=== PATIENT | male | born 1940 | race Caucasian/White ===

== ENCOUNTER 2019-06-28 13:32 | Inpatient (IN) | payer MEDICARE, OTHER, MEDICAID ==
[2019-06-28 14:09] LABS: ADD MAN DIFF? NO
[2019-06-28 14:14] LABS: BASOPHILS % 0.3 % (0.0-2.0); EOSINOPHILS # 0.1 10^3/ul (0.0-0.5); EOSINOPHILS % 0.9 % (0.0-7.0); HEMATOCRIT 29.5 % (42.0-52.0); LYMPHOCYTES % 9.7 % (15.0-51.0); MEAN CORPUSCULAR HEMOGLOBIN 29.4 pg (29.0-33.0); MEAN CORPUSCULAR HGB CONC 30.5 g/dl (32.0-37.0); MEAN CORPUSCULAR VOLUME 96.4 fl (82.0-101.0); MEAN PLATELET VOLUME 9.9 fl (7.4-10.4); MONOCYTE # 0.7 10^3/ul (0.3-0.9); MONOCYTES % 7.1 % (0.0-11.0); NEUTROPHIL # 8.5 10^3/ul (1.6-7.5); NEUTROPHILS % 81.4 % (39.0-77.0); PLATELET COUNT 267 10^3/UL (140-415); RED BLOOD COUNT 3.06 10^6/ul (4.70-6.10); RED CELL DISTRIBUTION WIDTH 14.1 % (11.5-14.5)
[2019-06-28 14:14] LABS: WHITE BLOOD COUNT 10.4 10^3/ul (4.8-10.8)
[2019-06-28] MEDS: ONDANSETRON 4 MG INJ IV ×2 (14:14→19:40)
[2019-06-28] MEDS: SOD CHLORIDE 0.9% 1,000 ML IV (14:14)
[2019-06-28] MEDS: FENTAnyl 50 MCG/ML VIAL IV (14:15)
[2019-06-28 14:21] LABS: ADD UMIC YES; UR ASCORBIC ACID NEGATIVE (NEGATIVE); UR BACTERIA FEW /HPF (NONE SEEN); UR BILIRUBIN (Dip) NEGATIVE (NEGATIVE); UR BLOOD (Dip) 1+ mg/dL (NEGATIVE); UR CLARITY SLIGHTLY CLOUDY (CLEAR); UR COLOR YELLOW (YELLOW); UR GLUCOSE (Dip) 3+ mg/dL (NEGATIVE); UR KETONES (Dip) NEGATIVE (NEGATIVE); UR LEUKOCYTE ESTERASE (Dip) TRACE Leu/ul (NEGATIVE); UR MUCUS FEW /HPF (NONE SEEN); UR NITRITE (Dip) NEGATIVE (NEGATIVE); UR RBC 2 /HPF (0-5); UR SPECIFIC GRAVITY (Dip) 1.008 (1.003-1.030); UR TOTAL PROTEIN (Dip) 1+ mg/dl (NEGATIVE); UR UROBILINOGEN (Dip) NEGATIVE (NEGATIVE); UR WBC 3 /HPF (0-5)
[2019-06-28 14:33] LABS: INR 1.29; PROTIME 16.2 Sec (11.9-14.9); PT RATIO 1.3
[2019-06-28 14:35] LABS: ALANINE AMINOTRANSFERASE 41 IU/L (13-69); ALBUMIN 2.8 g/dl (3.3-4.9); ALBUMIN/GLOBULIN RATIO 0.75; ALKALINE PHOSPHATASE 257 IU/L (42-121); ANION GAP 7 (5-13); ASPARTATE AMINO TRANSFERASE 34 IU/L (15-46); BILIRUBIN,INDIRECT 0.8 mg/dl (0-1.1); BILIRUBIN,TOTAL 0.8 mg/dl (0.2-1.3); BLOOD UREA NITROGEN 54 mg/dl (7-20); CALCIUM 8.5 mg/dl (8.4-10.2); CARBON DIOXIDE 25 mmol/L (21-31); CHLORIDE 106 mmol/L (97-110); CREATININE 1.14 mg/dl (0.61-1.24); GLUCOSE 375 mg/dl (70-220); LIPASE 176 U/L (23-300); POTASSIUM 3.8 mmol/L (3.5-5.1); SODIUM 138 mmol/L (135-144); TOTAL PROTEIN 6.5 g/dl (6.1-8.1)
[2019-06-28 14:47] LABS: TROPONIN-I < 0.012 ng/ml (0.000-0.120)
[2019-06-28] MEDS ORDERED: ONDANSETRON 4 MG INJ IV (19:30)
[2019-06-28] MEDS ORDERED: ACETAMINOPHEN 325 MG TAB PO (19:30)
[2019-06-28] MEDS: morphine 2 MG INJ IV (19:40)
[2019-06-28] MEDS: SOD CHLORIDE 0.9% 500 ML IV (19:40)
[2019-06-29] MEDS: LEVETIRACETAM 500 MG TAB PO ×3 (01:24→20:49)
[2019-06-29] MEDS ORDERED: ONDANSETRON 4 MG INJ IV (01:30)
[2019-06-29] MEDS ORDERED: ALBUTEROL/IPRATROPIUM (NEB) 3 ML AMP HHN (01:30)
[2019-06-29] MEDS ORDERED: NACL 0.9% 3 ML SYG IV (01:30)
[2019-06-29] MEDS: FOLIC ACID 1 MG TAB PO (08:48)
[2019-06-29] MEDS: MUPIROCIN 2% 22 GM OINT TOP ×2 (08:49→20:50)
[2019-06-29] MEDS ORDERED: HEPARIN 5,000 UNIT/1 ML VIAL SC (09:00)
[2019-06-29] MEDS ORDERED: NON-FORMULARY/PATIENT OWN MED (Memantine HCl/Donepezil HCl (Namzaric 28 mg-10 mg Capsule) PO (09:00)
[2019-06-29] MEDS: ACETAMINOPHEN 325 MG TAB PO (12:23)
[2019-06-29] MEDS ORDERED: GLUCOSE GEL 15 GRAM TUBE PO ×2 (12:30)
[2019-06-29] MEDS ORDERED: DEXTROSE 50% 50 ML SYRINGE IV ×2 (12:30)
[2019-06-29] MEDS ORDERED: GLUCAGON 1 MG INJ IM (12:30)
[2019-06-29] MEDS ORDERED: hydrALAzine 20 MG INJ IV (12:30)
[2019-06-29] MEDS ORDERED: GLUCOSE GEL 15 GRAM TUBE BUCCAL (12:30)
[2019-06-29 13:39] LABS: TROPONIN-I < 0.012 ng/ml (0.000-0.120)
[2019-06-29] MEDS: CEPHALEXIN 500 MG CAP PO ×2 (13:59→17:04)
[2019-06-29] MEDS: HYDROCODONE/APAP (5/325) TAB PO (14:51)
[2019-06-29] MEDS: DONEPEZIL 10 MG TAB PO (16:58)
[2019-06-29] MEDS: INSULIN ASPART [NOVOLOG] 3 ML PEN SC ×2 (17:24→21:09)
[2019-06-29 19:18] LABS: TROPONIN-I < 0.012 ng/ml (0.000-0.120)
[2019-06-29] MEDS: ATORVASTATIN 40 MG TAB PO (20:49)
[2019-06-29] MEDS: MEMANTINE 10 MG TAB PO (20:50)
[2019-06-30] MEDS: CEPHALEXIN 500 MG CAP PO ×2 (01:49→05:57)
[2019-06-30] MEDS: ACCU-CHEK XX (01:59)
[2019-06-30 06:14] LABS: ADD MAN DIFF? NO
[2019-06-30 06:26] LABS: BASOPHILS % 0.3 % (0.0-2.0); EOSINOPHILS # 0.2 10^3/ul (0.0-0.5); EOSINOPHILS % 1.3 % (0.0-7.0); HEMATOCRIT 32.4 % (42.0-52.0); HEMOGLOBIN 9.8 g/dl (14.0-18.0); LYMPHOCYTES # 1.4 10^3/ul (0.8-2.9); LYMPHOCYTES % 10.9 % (15.0-51.0); MEAN CORPUSCULAR HEMOGLOBIN 29.4 pg (29.0-33.0); MEAN CORPUSCULAR HGB CONC 30.2 g/dl (32.0-37.0); MEAN CORPUSCULAR VOLUME 97.3 fl (82.0-101.0); MEAN PLATELET VOLUME 10.1 fl (7.4-10.4); MONOCYTE # 0.8 10^3/ul (0.3-0.9); MONOCYTES % 6.3 % (0.0-11.0); NEUTROPHIL # 10.3 10^3/ul (1.6-7.5); NEUTROPHILS % 80.8 % (39.0-77.0); PLATELET COUNT 280 10^3/UL (140-415); RED BLOOD COUNT 3.33 10^6/ul (4.70-6.10); RED CELL DISTRIBUTION WIDTH 14.5 % (11.5-14.5)
[2019-06-30 06:26] LABS: WHITE BLOOD COUNT 12.8 10^3/ul (4.8-10.8)
[2019-06-30 07:00] LABS: ALANINE AMINOTRANSFERASE 33 IU/L (13-69); ALBUMIN 2.8 g/dl (3.3-4.9); ALBUMIN/GLOBULIN RATIO 0.71; ALKALINE PHOSPHATASE 280 IU/L (42-121); ANION GAP 4 (5-13); ASPARTATE AMINO TRANSFERASE 34 IU/L (15-46); BILIRUBIN,INDIRECT 0.8 mg/dl (0-1.1); BILIRUBIN,TOTAL 0.8 mg/dl (0.2-1.3); BLOOD UREA NITROGEN 34 mg/dl (7-20); CALCIUM 8.7 mg/dl (8.4-10.2); CARBON DIOXIDE 26 mmol/L (21-31); CHLORIDE 107 mmol/L (97-110); CREATININE 0.86 mg/dl (0.61-1.24); GLUCOSE 202 mg/dl (70-220); MAGNESIUM 1.8 mg/dl (1.7-2.5); PHOSPHORUS 2.7 mg/dl (2.5-4.9); POTASSIUM 4.1 mmol/L (3.5-5.1); SODIUM 137 mmol/L (135-144); TOTAL PROTEIN 6.7 g/dl (6.1-8.1)
[2019-06-30 07:09] LABS: CHOLESTEROL 98 mg/dl (100-200)
[2019-06-30 07:09] LABS: CHOL/HDL RATIO 3.9 RATIO; HDL CHOLESTEROL 25 mg/dl (31-75); LDL CHOLESTEROL,CALCULATED 53 mg/dl; TRIGLYCERIDES 100 mg/dl (0-149)
[2019-06-30] MEDS: INSULIN ASPART [NOVOLOG] 3 ML PEN SC ×4 (07:59→21:43)
[2019-06-30] MEDS: MEMANTINE 10 MG TAB PO ×2 (08:48→20:41)
[2019-06-30] MEDS: MUPIROCIN 2% 22 GM OINT TOP ×2 (08:49→20:44)
[2019-06-30] MEDS: FOLIC ACID 1 MG TAB PO (08:49)
[2019-06-30] MEDS: DONEPEZIL 10 MG TAB PO (08:49)
[2019-06-30] MEDS: LEVETIRACETAM 500 MG TAB PO ×2 (08:49→20:41)
[2019-06-30] MEDS: CEFEPIME 1GM/50 ML (PMX) 50 ML IVPB ×2 (10:04→20:40)
[2019-06-30] MEDS: HYDROCODONE/APAP (5/325) TAB PO (12:07)
[2019-06-30] MEDS: ATORVASTATIN 40 MG TAB PO (20:41)
[2019-06-30] MEDS: ASCORBIC ACID 500 MG TAB PO (20:43)
[2019-07-01] MEDS: ACCU-CHEK XX ×2 (02:14→21:58)
[2019-07-01 06:23] LABS: WHITE BLOOD COUNT 14.7 10^3/ul (4.8-10.8)
[2019-07-01 06:23] LABS: HEMOGLOBIN 9.5 g/dl (14.0-18.0); MEAN CORPUSCULAR HEMOGLOBIN 29.4 pg (29.0-33.0); MEAN CORPUSCULAR HGB CONC 30.6 g/dl (32.0-37.0); MEAN PLATELET VOLUME 10.2 fl (7.4-10.4); PLATELET COUNT 269 10^3/UL (140-415); POSITIVE DIFF @See below; RED BLOOD COUNT 3.23 10^6/ul (4.70-6.10); RED CELL DISTRIBUTION WIDTH 14.5 % (11.5-14.5)
[2019-07-01 06:50] LABS: ANION GAP 5 (5-13); BLOOD UREA NITROGEN 33 mg/dl (7-20); CALCIUM 8.5 mg/dl (8.4-10.2); CARBON DIOXIDE 26 mmol/L (21-31); CHLORIDE 106 mmol/L (97-110); GLUCOSE 240 mg/dl (70-220); MAGNESIUM 1.8 mg/dl (1.7-2.5); PHOSPHORUS 2.7 mg/dl (2.5-4.9); POTASSIUM 3.7 mmol/L (3.5-5.1); SODIUM 137 mmol/L (135-144)
[2019-07-01 07:03] LABS: ADD MAN DIFF? YES
[2019-07-01] MEDS: MULTIVITAMINS THERAPEUTIC TAB PO (08:11)
[2019-07-01] MEDS: BALSAM PERU/CASTOR OIL 60 GM TUBE TOP (08:11)
[2019-07-01] MEDS: ZINC SULFATE 220 MG CAP PO (08:11)
[2019-07-01] MEDS: LEVETIRACETAM 500 MG TAB PO ×2 (08:11→20:17)
[2019-07-01] MEDS: MEMANTINE 10 MG TAB PO ×2 (08:11→20:17)
[2019-07-01] MEDS: FOLIC ACID 1 MG TAB PO (08:11)
[2019-07-01] MEDS: CEFEPIME 1GM/50 ML (PMX) 50 ML IVPB ×2 (08:12→20:17)
[2019-07-01] MEDS: ASCORBIC ACID 500 MG TAB PO ×2 (08:12→20:17)
[2019-07-01] MEDS: DONEPEZIL 10 MG TAB PO (08:13)
[2019-07-01] MEDS: INSULIN ASPART [NOVOLOG] 3 ML PEN SC ×5 (08:24→21:57)
[2019-07-01 08:44] LABS: BAND NEUTROPHILS #M 0.1 10^3/ul (0.0-0.6); BAND NEUTROPHILS % (M) 1 % (0-4); EOSINOPHILS % (M) 2 % (0-7); GIANT THROMBO% (M) 1 % (0-0); LYMPHOCYTES #M 1.6 10^3/ul (0.8-2.9); LYMPHOCYTES % (M) 11 % (15-51); MONOCYTE #M 0.8 10^3/ul (0.3-0.9); MONOCYTES % (M) 6 % (0-11); PLATELET ESTIMATE NORMAL; POLYCHROMASIA 1+ (0-0); SEG NEUT #M 11.8 10^3/ul (1.6-7.5); SEGMENTED NEUTROPHILS (M) % 80 % (39-77); SMUDGE%M 8 % (0-0)
[2019-07-01] MEDS: MUPIROCIN 2% 22 GM OINT TOP ×2 (12:02→20:18)
[2019-07-01 12:37] LABS: IMMEDIATE SPIN CROSSMATCH 1 2
[2019-07-01] MEDS: MAGNESIUM SULFATE 2 GM/50 ML 50 ML IVPB (17:21)
[2019-07-01 18:48] LABS: HEMATOCRIT 33.5 % (42.0-52.0); HEMOGLOBIN 10.6 g/dl (14.0-18.0)
[2019-07-01] MEDS: COLLAGENASE 5 GM (UD JAR) TOP (20:17)
[2019-07-01] MEDS: ATORVASTATIN 40 MG TAB PO (20:18)
[2019-07-01] MEDS: POTASSIUM CHLORIDE 100 ML IVPB (21:53)
[2019-07-01] MEDS: ACETAMINOPHEN 325 MG TAB PO (23:21)
[2019-07-02] MEDS: ACCU-CHEK XX (03:37)
[2019-07-02 06:04] LABS: ADD MAN DIFF? NO
[2019-07-02 06:08] LABS: WHITE BLOOD COUNT 13.1 10^3/ul (4.8-10.8)
[2019-07-02 06:08] LABS: BASOPHILS % 0.3 % (0.0-2.0); EOSINOPHILS # 0.2 10^3/ul (0.0-0.5); EOSINOPHILS % 1.3 % (0.0-7.0); HEMOGLOBIN 11.3 g/dl (14.0-18.0); LYMPHOCYTES # 1.5 10^3/ul (0.8-2.9); LYMPHOCYTES % 11.7 % (15.0-51.0); MEAN CORPUSCULAR HEMOGLOBIN 29.3 pg (29.0-33.0); MEAN CORPUSCULAR HGB CONC 31.4 g/dl (32.0-37.0); MEAN CORPUSCULAR VOLUME 93.3 fl (82.0-101.0); MONOCYTES % 7.9 % (0.0-11.0); NEUTROPHIL # 10.2 10^3/ul (1.6-7.5); NEUTROPHILS % 77.9 % (39.0-77.0); PLATELET COUNT 256 10^3/UL (140-415); POSITIVE DIFF @See below; RED BLOOD COUNT 3.86 10^6/ul (4.70-6.10); RED CELL DISTRIBUTION WIDTH 15.3 % (11.5-14.5)
[2019-07-02 06:40] LABS: ALBUMIN 2.7 g/dl (3.3-4.9); ANION GAP 7 (5-13); BLOOD UREA NITROGEN 40 mg/dl (7-20); CALCIUM 8.7 mg/dl (8.4-10.2); CARBON DIOXIDE 22 mmol/L (21-31); CHLORIDE 107 mmol/L (97-110); CREATININE 1.09 mg/dl (0.61-1.24); GLUCOSE 317 mg/dl (70-220); MAGNESIUM 2.3 mg/dl (1.7-2.5); PHOSPHORUS 2.7 mg/dl (2.5-4.9); POTASSIUM 4.1 mmol/L (3.5-5.1); SODIUM 136 mmol/L (135-144)
[2019-07-02 06:53] LABS: HEMOGLOBIN A1C 9.7 % (0-5.9)
[2019-07-02 08:18] LABS: BAND NEUTROPHILS #M 0.5 10^3/ul (0.0-0.6); BAND NEUTROPHILS % (M) 4 % (0-4); BASOPHIL #M 0.2 10^3/ul (0.0-0.0); BASOPHILS % (M) 2 % (0-2); EOSINOPHILS % (M) 2 % (0-7); LYMPHOCYTES % (M) 8 % (15-51); MONOCYTE #M 0.5 10^3/ul (0.3-0.9); MONOCYTES % (M) 4 % (0-11); PLATELET ESTIMATE NORMAL; POIKILOCYTOSIS 1+ (0-0); SEG NEUT #M 10.5 10^3/ul (1.6-7.5); SEGMENTED NEUTROPHILS (M) % 80 % (39-77); SMUDGE%M 1 % (0-0)
[2019-07-02] MEDS: DONEPEZIL 10 MG TAB PO (08:47)
[2019-07-02] MEDS: ZINC SULFATE 220 MG CAP PO (08:48)
[2019-07-02] MEDS: ASCORBIC ACID 500 MG TAB PO ×2 (08:48→21:50)
[2019-07-02] MEDS: FOLIC ACID 1 MG TAB PO (08:48)
[2019-07-02] MEDS: MEMANTINE 10 MG TAB PO ×2 (08:48→21:57)
[2019-07-02] MEDS: MULTIVITAMINS THERAPEUTIC TAB PO (08:48)
[2019-07-02] MEDS: LEVETIRACETAM 500 MG TAB PO ×2 (08:48→21:48)
[2019-07-02] MEDS: CEFEPIME 1GM/50 ML (PMX) 50 ML IVPB ×2 (08:49→21:50)
[2019-07-02] MEDS: BALSAM PERU/CASTOR OIL 60 GM TUBE TOP (08:50)
[2019-07-02] MEDS: MUPIROCIN 2% 22 GM OINT TOP ×2 (08:50→21:00)
[2019-07-02] MEDS: COLLAGENASE 5 GM (UD JAR) TOP ×2 (08:51→21:48)
[2019-07-02] MEDS: INSULIN ASPART [NOVOLOG] 3 ML PEN SC ×3 (11:43→21:39)
[2019-07-02] MEDS ORDERED: CEFAZOLIN 1 GM INJ (16:21)
[2019-07-02] MEDS ORDERED: PROPOFOL 20 ML (16:21)
[2019-07-02] MEDS ORDERED: ROPIVACAINE 0.2% 20 ML VIAL (16:23)
[2019-07-02] MEDS ORDERED: MIDAZOLAM 1 MG/ML 2 ML INJ (16:23)
[2019-07-02] MEDS ORDERED: FENTAnyl 50 MCG/ML VIAL (16:23)
[2019-07-02] MEDS ORDERED: HETASTARCH 6% NACL 500 ML (17:12)
[2019-07-02] MEDS ORDERED: PHENYLephrine (100 MCG/ML) 10ML SYG (17:12)
[2019-07-02] MEDS ORDERED: VANCOMYCIN IV PER PHARMACY XX (17:30)
[2019-07-02] MEDS ORDERED: PHENYLephrine 10 MG INJ (17:35)
[2019-07-02] MEDS ORDERED: DEXAMETHASONE 4 MG/ML 5 ML INJ (17:40)
[2019-07-02] MEDS ORDERED: ONDANSETRON 4 MG INJ (17:40)
[2019-07-02] MEDS ORDERED: HYDROCODONE/APAP (5/325) TAB PO (18:00)
[2019-07-02] MEDS ORDERED: NACL 0.9% 3 ML SYG IV (18:00)
[2019-07-02] MEDS: SOD CHLORIDE 0.9% 1,000 ML IV (18:48)
[2019-07-02] MEDS ORDERED: NALOXONE (0.4 MG/ML) INJ (19:05)
[2019-07-02] MEDS: NALOXONE (0.4 MG/ML) INJ IV (19:19)
[2019-07-02] MEDS ORDERED: ONDANSETRON 4 MG INJ IV (19:30)
[2019-07-02] MEDS ORDERED: morphine 2 MG INJ IV (19:30)
[2019-07-02] MEDS ORDERED: HYDROmorphONE 0.5 MG/0.5 ML SYG IV (19:30)
[2019-07-02] MEDS ORDERED: NALBUPHINE HCL (10 MG/1 ML) INJ IV (19:30)
[2019-07-02] MEDS ORDERED: DIPHENHYDRAMINE 50 MG INJ IV (19:30)
[2019-07-02] MEDS: VANCOMYCIN 1.25 GM/NS 250 ML 250 ML IVPB (20:36)
[2019-07-02] MEDS: ATORVASTATIN 40 MG TAB PO (21:49)
[2019-07-03] MEDS: ACCU-CHEK XX (02:00)
[2019-07-03 05:47] LABS: ADD MAN DIFF? NO
[2019-07-03 05:55] LABS: ABNORMAL IP MESSAGE 1; BASOPHILS % 0.1 % (0.0-2.0); HEMATOCRIT 32.5 % (42.0-52.0); HEMOGLOBIN 9.8 g/dl (14.0-18.0); LYMPHOCYTES # 0.3 10^3/ul (0.8-2.9); LYMPHOCYTES % 4.1 % (15.0-51.0); MEAN CORPUSCULAR HEMOGLOBIN 29.4 pg (29.0-33.0); MEAN CORPUSCULAR HGB CONC 30.2 g/dl (32.0-37.0); MEAN CORPUSCULAR VOLUME 97.6 fl (82.0-101.0); MEAN PLATELET VOLUME 10.2 fl (7.4-10.4); MONOCYTE # 0.1 10^3/ul (0.3-0.9); MONOCYTES % 1.2 % (0.0-11.0); NEUTROPHIL # 7.3 10^3/ul (1.6-7.5); PLATELET COUNT 215 10^3/UL (140-415); POSITIVE DIFF @See below; RED BLOOD COUNT 3.33 10^6/ul (4.70-6.10); RED CELL DISTRIBUTION WIDTH 14.7 % (11.5-14.5)
[2019-07-03 05:55] LABS: WHITE BLOOD COUNT 7.8 10^3/ul (4.8-10.8)
[2019-07-03 06:36] LABS: ALBUMIN 2.1 g/dl (3.3-4.9); ANION GAP 6 (5-13); BLOOD UREA NITROGEN 43 mg/dl (7-20); CARBON DIOXIDE 21 mmol/L (21-31); CHLORIDE 112 mmol/L (97-110); CREATININE 0.93 mg/dl (0.61-1.24); GLUCOSE 328 mg/dl (70-220); MAGNESIUM 1.9 mg/dl (1.7-2.5); PHOSPHORUS 4.4 mg/dl (2.5-4.9); POTASSIUM 4.7 mmol/L (3.5-5.1); SODIUM 139 mmol/L (135-144)
[2019-07-03] MEDS: SOD CHLORIDE 0.9% 1,000 ML IV ×2 (06:48→19:45)
[2019-07-03] MEDS: INSULIN ASPART [NOVOLOG] 3 ML PEN SC ×5 (07:48→22:21)
[2019-07-03] MEDS: CEFEPIME 1GM/50 ML (PMX) 50 ML IVPB ×2 (08:38→21:13)
[2019-07-03] MEDS: LEVETIRACETAM 500 MG TAB PO ×2 (08:39→21:00)
[2019-07-03] MEDS: ASCORBIC ACID 500 MG TAB PO ×2 (08:39→21:01)
[2019-07-03] MEDS: ZINC SULFATE 220 MG CAP PO (08:39)
[2019-07-03] MEDS: FOLIC ACID 1 MG TAB PO (08:39)
[2019-07-03] MEDS: MEMANTINE 10 MG TAB PO ×2 (08:39→21:00)
[2019-07-03] MEDS: MULTIVITAMINS THERAPEUTIC TAB PO (08:39)
[2019-07-03] MEDS: DONEPEZIL 10 MG TAB PO (08:39)
[2019-07-03] MEDS: ENOXAPARIN 40 MG/0.4 ML SYG SC (09:02)
[2019-07-03 10:49] LABS: IRON 21 ug/dl (35-150)
[2019-07-03 10:59] LABS: % IRON SATURATION 14 % SAT (22-52); TOTAL IRON BINDING CAPACITY 149 ug/dl (241-421)
[2019-07-03] MEDS: COLLAGENASE 5 GM (UD JAR) TOP ×2 (11:39→21:18)
[2019-07-03] MEDS: BALSAM PERU/CASTOR OIL 60 GM TUBE TOP ×2 (11:39→21:18)
[2019-07-03] MEDS: MUPIROCIN 2% 22 GM OINT TOP ×2 (11:39→21:00)
[2019-07-03] MEDS: glipiZIDE 10 MG TAB PO (15:20)
[2019-07-03] MEDS: INSULIN GLARGINE [LANTus] (100 UNITS/ML) SYG SC (15:29)
[2019-07-03] MEDS: FLUCONAZOLE 100 MG/50 ML (PMX) 50 ML IVPB (18:44)
[2019-07-03] MEDS: ATORVASTATIN 40 MG TAB PO (21:00)
[2019-07-03] MEDS: VANCOMYCIN 1 GM 250 ML IVPB (21:13)
[2019-07-04] MEDS: ACETAMINOPHEN 325 MG TAB PO ×2 (01:00→20:46)
[2019-07-04] MEDS: ACCU-CHEK XX ×2 (02:00)
[2019-07-04] MEDS: PANTOPRAZOLE (EC) 40 MG TAB PO (06:01)
[2019-07-04 06:08] LABS: ADD MAN DIFF? NO
[2019-07-04 06:14] LABS: BASOPHILS % 0.2 % (0.0-2.0); EOSINOPHILS % 0.1 % (0.0-7.0); HEMATOCRIT 30.5 % (42.0-52.0); HEMOGLOBIN 9.4 g/dl (14.0-18.0); LYMPHOCYTES # 0.8 10^3/ul (0.8-2.9); LYMPHOCYTES % 6.6 % (15.0-51.0); MEAN CORPUSCULAR HEMOGLOBIN 29.3 pg (29.0-33.0); MEAN CORPUSCULAR HGB CONC 30.8 g/dl (32.0-37.0); MEAN PLATELET VOLUME 10.2 fl (7.4-10.4); MONOCYTE # 0.9 10^3/ul (0.3-0.9); MONOCYTES % 7.6 % (0.0-11.0); NEUTROPHIL # 10.2 10^3/ul (1.6-7.5); NEUTROPHILS % 84.5 % (39.0-77.0); PLATELET COUNT 238 10^3/UL (140-415); RED BLOOD COUNT 3.21 10^6/ul (4.70-6.10); RED CELL DISTRIBUTION WIDTH 14.4 % (11.5-14.5)
[2019-07-04 06:14] LABS: WHITE BLOOD COUNT 12.1 10^3/ul (4.8-10.8)
[2019-07-04 06:46] LABS: ALBUMIN 2.1 g/dl (3.3-4.9); ANION GAP 4 (5-13); BLOOD UREA NITROGEN 51 mg/dl (7-20); CARBON DIOXIDE 21 mmol/L (21-31); CHLORIDE 111 mmol/L (97-110); CREATININE 1.07 mg/dl (0.61-1.24); GLUCOSE 293 mg/dl (70-220); MAGNESIUM 1.8 mg/dl (1.7-2.5); PHOSPHORUS 2.7 mg/dl (2.5-4.9); POTASSIUM 3.4 mmol/L (3.5-5.1); SODIUM 136 mmol/L (135-144)
[2019-07-04] MEDS: SOD CHLORIDE 0.9% 1,000 ML IV (07:31)
[2019-07-04] MEDS: glipiZIDE 10 MG TAB PO (07:52)
[2019-07-04] MEDS: INSULIN GLARGINE [LANTus] (100 UNITS/ML) SYG SC (07:53)
[2019-07-04] MEDS: INSULIN ASPART [NOVOLOG] 3 ML PEN SC ×4 (07:54→20:53)
[2019-07-04] MEDS: COLLAGENASE 5 GM (UD JAR) TOP ×2 (09:46→20:54)
[2019-07-04] MEDS: CEFEPIME 1GM/50 ML (PMX) 50 ML IVPB ×2 (09:46→20:45)
[2019-07-04] MEDS: LEVETIRACETAM 500 MG TAB PO ×2 (09:47→20:46)
[2019-07-04] MEDS: MEMANTINE 10 MG TAB PO ×2 (09:47→20:46)
[2019-07-04] MEDS: POTASSIUM CHLORIDE 20 MEQ POWDER FOR ORAL SOLN PO (09:47)
[2019-07-04] MEDS: FOLIC ACID 1 MG TAB PO (09:47)
[2019-07-04] MEDS: ZINC SULFATE 220 MG CAP PO (09:47)
[2019-07-04] MEDS: DONEPEZIL 10 MG TAB PO (09:47)
[2019-07-04] MEDS: MULTIVITAMINS THERAPEUTIC TAB PO (09:47)
[2019-07-04] MEDS: ASCORBIC ACID 500 MG TAB PO ×2 (09:48→20:46)
[2019-07-04] MEDS: ENOXAPARIN 40 MG/0.4 ML SYG SC (09:53)
[2019-07-04] MEDS: MUPIROCIN 2% 22 GM OINT TOP ×2 (11:52→20:47)
[2019-07-04] MEDS: SOD FERRIC GLUC COMPLX 125 MG in SOD CHLORIDE 0.9% 100 ML IVPB (14:53)
[2019-07-04] MEDS: FLUCONAZOLE 100 MG/50 ML (PMX) 50 ML IVPB (18:03)
[2019-07-04] MEDS: HYDROCODONE/APAP (5/325) TAB PO (18:38)
[2019-07-04] MEDS: ATORVASTATIN 40 MG TAB PO (20:46)
[2019-07-04] MEDS: VANCOMYCIN 1 GM 250 ML IVPB (21:57)
[2019-07-05] MEDS: ACCU-CHEK XX (02:00)
[2019-07-05] MEDS: HYDROCODONE/APAP (5/325) TAB PO ×3 (02:28→21:25)
[2019-07-05 05:47] LABS: ADD MAN DIFF? NO
[2019-07-05 05:48] LABS: WHITE BLOOD COUNT 14.2 10^3/ul (4.8-10.8)
[2019-07-05 05:49] LABS: BASOPHILS % 0.2 % (0.0-2.0); EOSINOPHILS # 0.2 10^3/ul (0.0-0.5); EOSINOPHILS % 1.1 % (0.0-7.0); HEMATOCRIT 31.9 % (42.0-52.0); HEMOGLOBIN 9.9 g/dl (14.0-18.0); LYMPHOCYTES # 1.7 10^3/ul (0.8-2.9); LYMPHOCYTES % 12.2 % (15.0-51.0); MEAN CORPUSCULAR HEMOGLOBIN 29.3 pg (29.0-33.0); MEAN CORPUSCULAR VOLUME 94.4 fl (82.0-101.0); MONOCYTE # 1.1 10^3/ul (0.3-0.9); MONOCYTES % 7.7 % (0.0-11.0); NEUTROPHILS % 77.2 % (39.0-77.0); PLATELET COUNT 225 10^3/UL (140-415); RED BLOOD COUNT 3.38 10^6/ul (4.70-6.10); RED CELL DISTRIBUTION WIDTH 14.6 % (11.5-14.5)
[2019-07-05 06:27] LABS: ALBUMIN 2.1 g/dl (3.3-4.9); ANION GAP 5 (5-13); BLOOD UREA NITROGEN 44 mg/dl (7-20); CALCIUM 8.2 mg/dl (8.4-10.2); CARBON DIOXIDE 20 mmol/L (21-31); CHLORIDE 114 mmol/L (97-110); CREATININE 1.06 mg/dl (0.61-1.24); GLUCOSE 160 mg/dl (70-220); MAGNESIUM 1.7 mg/dl (1.7-2.5); POTASSIUM 3.7 mmol/L (3.5-5.1); SODIUM 139 mmol/L (135-144)
[2019-07-05] MEDS: glipiZIDE 10 MG TAB PO (06:46)
[2019-07-05] MEDS: PANTOPRAZOLE (EC) 40 MG TAB PO (06:46)
[2019-07-05] MEDS: INSULIN GLARGINE [LANTus] (100 UNITS/ML) SYG SC (07:55)
[2019-07-05] MEDS: INSULIN ASPART [NOVOLOG] 3 ML PEN SC ×4 (07:55→21:00)
[2019-07-05] MEDS: ASCORBIC ACID 500 MG TAB PO ×2 (09:34→20:29)
[2019-07-05] MEDS: FOLIC ACID 1 MG TAB PO (09:34)
[2019-07-05] MEDS: CEFEPIME 1GM/50 ML (PMX) 50 ML IVPB ×2 (09:34→20:28)
[2019-07-05] MEDS: LEVETIRACETAM 500 MG TAB PO ×2 (09:34→20:29)
[2019-07-05] MEDS: MULTIVITAMINS THERAPEUTIC TAB PO (09:34)
[2019-07-05] MEDS: COLLAGENASE 5 GM (UD JAR) TOP ×2 (09:34→20:29)
[2019-07-05] MEDS: MEMANTINE 10 MG TAB PO ×2 (09:34→20:29)
[2019-07-05] MEDS: ZINC SULFATE 220 MG CAP PO (09:34)
[2019-07-05] MEDS: DONEPEZIL 10 MG TAB PO (09:34)
[2019-07-05] MEDS: BALSAM PERU/CASTOR OIL 60 GM TUBE TOP (09:35)
[2019-07-05] MEDS: MUPIROCIN 2% 22 GM OINT TOP ×2 (09:35→20:30)
[2019-07-05] MEDS: ENOXAPARIN 40 MG/0.4 ML SYG SC (09:53)
[2019-07-05] MEDS: NEOMYC/POLYMYX/BACIT 30 GM OINT TOP ×2 (11:15→20:30)
[2019-07-05] MEDS: SOD FERRIC GLUC COMPLX 125 MG in SOD CHLORIDE 0.9% 100 ML IVPB (13:40)
[2019-07-05] MEDS: FLUCONAZOLE 100 MG/50 ML (PMX) 50 ML IVPB (17:22)
[2019-07-05 20:11] LABS: VANCOMYCIN,TROUGH 11.2 ug/ml (10.0-20.0)
[2019-07-05] MEDS: ATORVASTATIN 40 MG TAB PO (20:29)
[2019-07-05] MEDS: ACETAMINOPHEN 325 MG TAB PO (20:38)
[2019-07-05] MEDS: VANCOMYCIN 1 GM 250 ML IVPB (21:25)
[2019-07-06] MEDS: ACCU-CHEK XX (02:54)
[2019-07-06 06:00] LABS: ADD MAN DIFF? NO
[2019-07-06 06:01] LABS: WHITE BLOOD COUNT 11.8 10^3/ul (4.8-10.8)
[2019-07-06 06:01] LABS: BASOPHIL # 0.1 10^3/ul (0.0-0.1); BASOPHILS % 0.5 % (0.0-2.0); EOSINOPHILS # 0.2 10^3/ul (0.0-0.5); HEMATOCRIT 34.7 % (42.0-52.0); HEMOGLOBIN 10.3 g/dl (14.0-18.0); LYMPHOCYTES # 1.7 10^3/ul (0.8-2.9); LYMPHOCYTES % 14.6 % (15.0-51.0); MEAN CORPUSCULAR HEMOGLOBIN 29.2 pg (29.0-33.0); MEAN CORPUSCULAR HGB CONC 29.7 g/dl (32.0-37.0); MEAN CORPUSCULAR VOLUME 98.3 fl (82.0-101.0); MONOCYTES % 8.3 % (0.0-11.0); NEUTROPHIL # 8.5 10^3/ul (1.6-7.5); PLATELET COUNT 193 10^3/UL (140-415); RED BLOOD COUNT 3.53 10^6/ul (4.70-6.10); RED CELL DISTRIBUTION WIDTH 14.9 % (11.5-14.5)
[2019-07-06] MEDS: PANTOPRAZOLE (EC) 40 MG TAB PO (06:33)
[2019-07-06] MEDS: glipiZIDE 10 MG TAB PO (06:33)
[2019-07-06 07:05] LABS: ALBUMIN 2.1 g/dl (3.3-4.9); ANION GAP 2 (5-13); BLOOD UREA NITROGEN 43 mg/dl (7-20); CALCIUM 8.3 mg/dl (8.4-10.2); CARBON DIOXIDE 22 mmol/L (21-31); CHLORIDE 115 mmol/L (97-110); CREATININE 1.14 mg/dl (0.61-1.24); GLUCOSE 150 mg/dl (70-220); MAGNESIUM 1.8 mg/dl (1.7-2.5); PHOSPHORUS 2.3 mg/dl (2.5-4.9); POTASSIUM 3.8 mmol/L (3.5-5.1); SODIUM 139 mmol/L (135-144)
[2019-07-06] MEDS: INSULIN ASPART [NOVOLOG] 3 ML PEN SC ×4 (07:25→20:56)
[2019-07-06] MEDS: INSULIN GLARGINE [LANTus] (100 UNITS/ML) SYG SC (07:29)
[2019-07-06] MEDS: MULTIVITAMINS THERAPEUTIC TAB PO (08:38)
[2019-07-06] MEDS: ASCORBIC ACID 500 MG TAB PO ×2 (08:38→20:37)
[2019-07-06] MEDS: CEFEPIME 1GM/50 ML (PMX) 50 ML IVPB ×2 (08:38→20:38)
[2019-07-06] MEDS: DONEPEZIL 10 MG TAB PO (08:39)
[2019-07-06] MEDS: MEMANTINE 10 MG TAB PO ×2 (08:39→20:37)
[2019-07-06] MEDS: LEVETIRACETAM 500 MG TAB PO ×2 (08:39→20:37)
[2019-07-06] MEDS: ZINC SULFATE 220 MG CAP PO (08:39)
[2019-07-06] MEDS: ENOXAPARIN 40 MG/0.4 ML SYG SC (08:51)
[2019-07-06] MEDS: MUPIROCIN 2% 22 GM OINT TOP ×2 (08:54→21:41)
[2019-07-06] MEDS: BALSAM PERU/CASTOR OIL 60 GM TUBE TOP (08:54)
[2019-07-06] MEDS: COLLAGENASE 5 GM (UD JAR) TOP ×2 (08:54→20:40)
[2019-07-06] MEDS: NEOMYC/POLYMYX/BACIT 30 GM OINT TOP ×2 (08:54→21:41)
[2019-07-06] MEDS: HYDROCODONE/APAP (5/325) TAB PO ×2 (08:55→17:22)
[2019-07-06] MEDS: FOLIC ACID 1 MG TAB PO (09:37)
[2019-07-06] MEDS: SOD FERRIC GLUC COMPLX 125 MG in SOD CHLORIDE 0.9% 100 ML IVPB (13:28)
[2019-07-06] MEDS: FLUCONAZOLE 100 MG/50 ML (PMX) 50 ML IVPB (17:22)
[2019-07-06] MEDS: ACETAMINOPHEN 325 MG TAB PO (18:34)
[2019-07-06] MEDS: morphine 2 MG INJ IV (18:48)
[2019-07-06] MEDS: ATORVASTATIN 40 MG TAB PO (20:37)
[2019-07-06] MEDS: VANCOMYCIN 1 GM 250 ML IVPB (20:39)
[2019-07-06] MEDS: LABETALOL HCL 20MG INJ IV (20:40)
[2019-07-07] MEDS: ACCU-CHEK XX (02:00)
[2019-07-07] MEDS: HYDROCODONE/APAP (5/325) TAB PO (03:09)
[2019-07-07 05:58] LABS: ADD MAN DIFF? NO
[2019-07-07 06:14] LABS: WHITE BLOOD COUNT 12.9 10^3/ul (4.8-10.8)
[2019-07-07 06:14] LABS: HEMATOCRIT 34.4 % (42.0-52.0); HEMOGLOBIN 10.4 g/dl (14.0-18.0); MEAN CORPUSCULAR HEMOGLOBIN 29.1 pg (29.0-33.0); MEAN CORPUSCULAR VOLUME 96.1 fl (82.0-101.0); RED BLOOD COUNT 3.58 10^6/ul (4.70-6.10)
[2019-07-07 06:15] LABS: BASOPHIL # 0.1 10^3/ul (0.0-0.1); BASOPHILS % 0.4 % (0.0-2.0); EOSINOPHILS # 0.1 10^3/ul (0.0-0.5); EOSINOPHILS % 1.1 % (0.0-7.0); LYMPHOCYTES # 1.6 10^3/ul (0.8-2.9); LYMPHOCYTES % 12.6 % (15.0-51.0); MEAN CORPUSCULAR HGB CONC 30.2 g/dl (32.0-37.0); MEAN PLATELET VOLUME 10.2 fl (7.4-10.4); MONOCYTES % 7.9 % (0.0-11.0); NEUTROPHIL # 9.8 10^3/ul (1.6-7.5); NEUTROPHILS % 75.7 % (39.0-77.0); PLATELET COUNT 201 10^3/UL (140-415); RED CELL DISTRIBUTION WIDTH 14.9 % (11.5-14.5)
[2019-07-07 06:30] LABS: MAGNESIUM 1.7 mg/dl (1.7-2.5)
[2019-07-07] MEDS: PANTOPRAZOLE (EC) 40 MG TAB PO (06:30)
[2019-07-07 06:46] LABS: ALANINE AMINOTRANSFERASE 40 IU/L (13-69); ALBUMIN/GLOBULIN RATIO 0.68; ALKALINE PHOSPHATASE 227 IU/L (42-121); ANION GAP 4 (5-13); ASPARTATE AMINO TRANSFERASE 23 IU/L (15-46); BILIRUBIN,INDIRECT 0.4 mg/dl (0-1.1); BILIRUBIN,TOTAL 0.4 mg/dl (0.2-1.3); BLOOD UREA NITROGEN 42 mg/dl (7-20); CALCIUM 8.5 mg/dl (8.4-10.2); CARBON DIOXIDE 22 mmol/L (21-31); CHLORIDE 113 mmol/L (97-110); CREATININE 1.08 mg/dl (0.61-1.24); GLUCOSE 225 mg/dl (70-220); POTASSIUM 3.9 mmol/L (3.5-5.1); SODIUM 139 mmol/L (135-144); TOTAL PROTEIN 4.9 g/dl (6.1-8.1)
[2019-07-07] MEDS: glipiZIDE 10 MG TAB PO (08:00)
[2019-07-07] MEDS: CEFEPIME 1GM/50 ML (PMX) 50 ML IVPB ×2 (08:02→20:30)
[2019-07-07] MEDS: INSULIN ASPART [NOVOLOG] 3 ML PEN SC ×4 (08:14→20:56)
[2019-07-07] MEDS: INSULIN GLARGINE [LANTus] (100 UNITS/ML) SYG SC (08:14)
[2019-07-07] MEDS: DONEPEZIL 10 MG TAB PO (09:21)
[2019-07-07] MEDS: MEMANTINE 10 MG TAB PO ×2 (09:22→20:31)
[2019-07-07] MEDS: MULTIVITAMINS THERAPEUTIC TAB PO (09:22)
[2019-07-07] MEDS: ASCORBIC ACID 500 MG TAB PO ×2 (09:23→20:31)
[2019-07-07] MEDS: FOLIC ACID 1 MG TAB PO (09:23)
[2019-07-07] MEDS: ZINC SULFATE 220 MG CAP PO (09:23)
[2019-07-07] MEDS: LEVETIRACETAM 500 MG TAB PO ×2 (09:23→20:31)
[2019-07-07] MEDS: BALSAM PERU/CASTOR OIL 60 GM TUBE TOP (09:27)
[2019-07-07] MEDS: NEOMYC/POLYMYX/BACIT 30 GM OINT TOP ×2 (09:27→21:25)
[2019-07-07] MEDS: MUPIROCIN 2% 22 GM OINT TOP ×2 (09:28→21:25)
[2019-07-07] MEDS: COLLAGENASE 5 GM (UD JAR) TOP ×2 (09:28→20:31)
[2019-07-07] MEDS: ENOXAPARIN 40 MG/0.4 ML SYG SC (10:09)
[2019-07-07] MEDS: morphine 2 MG INJ IV (14:33)
[2019-07-07] MEDS: FLUCONAZOLE 100 MG/50 ML (PMX) 50 ML IVPB (17:10)
[2019-07-07] MEDS: ATORVASTATIN 40 MG TAB PO (20:31)
[2019-07-07] MEDS: VANCOMYCIN 1 GM 250 ML IVPB (20:31)
[2019-07-07] MEDS: ACETAMINOPHEN 325 MG TAB PO (20:31)
[2019-07-08] MEDS: ACCU-CHEK XX (02:19)
[2019-07-08] MEDS: ACETAMINOPHEN 325 MG TAB PO (05:16)
[2019-07-08] MEDS: PANTOPRAZOLE (EC) 40 MG TAB PO (05:16)
[2019-07-08] MEDS: glipiZIDE 10 MG TAB PO (07:46)
[2019-07-08] MEDS: INSULIN GLARGINE [LANTus] (100 UNITS/ML) SYG SC (08:02)
[2019-07-08] MEDS: INSULIN ASPART [NOVOLOG] 3 ML PEN SC ×4 (08:57→20:54)
[2019-07-08] MEDS: CEFEPIME 1GM/50 ML (PMX) 50 ML IVPB (09:49)
[2019-07-08] MEDS: COLLAGENASE 5 GM (UD JAR) TOP ×2 (09:49→20:47)
[2019-07-08] MEDS: MULTIVITAMINS THERAPEUTIC TAB PO (09:50)
[2019-07-08] MEDS: FOLIC ACID 1 MG TAB PO (09:50)
[2019-07-08] MEDS: ENOXAPARIN 40 MG/0.4 ML SYG SC (09:50)
[2019-07-08] MEDS: MEMANTINE 10 MG TAB PO ×2 (09:50→20:46)
[2019-07-08] MEDS: ASCORBIC ACID 500 MG TAB PO ×2 (09:50→20:46)
[2019-07-08] MEDS: LEVETIRACETAM 500 MG TAB PO ×2 (09:50→20:46)
[2019-07-08] MEDS: DONEPEZIL 10 MG TAB PO (09:50)
[2019-07-08] MEDS: ZINC SULFATE 220 MG CAP PO (09:50)
[2019-07-08] MEDS: NEOMYC/POLYMYX/BACIT 30 GM OINT TOP ×2 (09:51→20:47)
[2019-07-08] MEDS: BALSAM PERU/CASTOR OIL 60 GM TUBE TOP (09:51)
[2019-07-08] MEDS: MUPIROCIN 2% 22 GM OINT TOP ×2 (09:51→20:47)
[2019-07-08 11:02] LABS: HEMATOCRIT 32.6 % (42.0-52.0); MEAN CORPUSCULAR HEMOGLOBIN 29.4 pg (29.0-33.0); MEAN CORPUSCULAR HGB CONC 30.7 g/dl (32.0-37.0); MEAN CORPUSCULAR VOLUME 95.9 fl (82.0-101.0); MEAN PLATELET VOLUME 10.2 fl (7.4-10.4); PLATELET COUNT 222 10^3/UL (140-415); POSITIVE DIFF @See below; RED CELL DISTRIBUTION WIDTH 15.6 % (11.5-14.5)
[2019-07-08 11:19] LABS: ALANINE AMINOTRANSFERASE 44 IU/L (13-69); ALBUMIN 2.4 g/dl (3.3-4.9); ALBUMIN/GLOBULIN RATIO 0.82; ALKALINE PHOSPHATASE 242 IU/L (42-121); ANION GAP 9 (5-13); ASPARTATE AMINO TRANSFERASE 31 IU/L (15-46); BILIRUBIN,INDIRECT 0.4 mg/dl (0-1.1); BILIRUBIN,TOTAL 0.4 mg/dl (0.2-1.3); BLOOD UREA NITROGEN 50 mg/dl (7-20); CALCIUM 8.3 mg/dl (8.4-10.2); CARBON DIOXIDE 20 mmol/L (21-31); CHLORIDE 108 mmol/L (97-110); CREATININE 1.42 mg/dl (0.61-1.24); GLUCOSE 276 mg/dl (70-220); POTASSIUM 3.8 mmol/L (3.5-5.1); SODIUM 137 mmol/L (135-144); TOTAL PROTEIN 5.3 g/dl (6.1-8.1)
[2019-07-08 11:39] LABS: ADD MAN DIFF? YES
[2019-07-08 12:38] LABS: ANISOCYTOSIS 1+ (0-0); BAND NEUTROPHILS #M 2.9 10^3/ul (0.0-0.6); BAND NEUTROPHILS % (M) 13 % (0-4); BURR CELLS 1+ (0-0); LYMPHOCYTES #M 1.6 10^3/ul (0.8-2.9); LYMPHOCYTES % (M) 7 % (15-51); MICROCYTOSIS 1+ (0-0); MONOCYTE #M 1.1 10^3/ul (0.3-0.9); MONOCYTES % (M) 5 % (0-11); PLATELET ESTIMATE NORMAL; POIKILOCYTOSIS 1+ (0-0); POLYCHROMASIA 1+ (0-0); REACTIVE LYMPHOCYTES #M 0.2 10^3/ul (0.0-0.0); REACTIVE LYMPHOCYTES% (M) 1 % (0-0); SEG NEUT #M 17.7 10^3/ul (1.6-7.5); SEGMENTED NEUTROPHILS (M) % 74 % (39-77)
[2019-07-08] MEDS: PIPER-TAZO 2.25 GM (PMX) 50 ML IVPB (18:58)
[2019-07-08] MEDS: FLUCONAZOLE 100 MG/50 ML (PMX) 50 ML IVPB (19:34)
[2019-07-08 20:46] LABS: ADD UMIC YES; UR ASCORBIC ACID 40 mg/dL (NEGATIVE); UR BACTERIA FEW /HPF (NONE SEEN); UR BILIRUBIN (Dip) NEGATIVE (NEGATIVE); UR BLOOD (Dip) NEGATIVE (NEGATIVE); UR BUDDING YEAST FEW /HPF (NONE SEEN); UR CLARITY SLIGHTLY CLOUDY (CLEAR); UR COLOR YELLOW (YELLOW); UR GLUCOSE (Dip) NEGATIVE (NEGATIVE); UR KETONES (Dip) NEGATIVE (NEGATIVE); UR LEUKOCYTE ESTERASE (Dip) NEGATIVE Leu/ul (NEGATIVE); UR NITRITE (Dip) NEGATIVE (NEGATIVE); UR RBC 3 /HPF (0-5); UR SPECIFIC GRAVITY (Dip) 1.012 (1.003-1.030); UR TOTAL PROTEIN (Dip) 1+ mg/dl (NEGATIVE); UR UROBILINOGEN (Dip) NEGATIVE (NEGATIVE); UR WBC 5 /HPF (0-5)
[2019-07-08] MEDS: ATORVASTATIN 40 MG TAB PO (20:46)
[2019-07-08 21:06] LABS: VANCOMYCIN,TROUGH 9.4 ug/ml (10.0-20.0)
[2019-07-08] MEDS: VANCOMYCIN 1 GM 250 ML IVPB (21:09)
[2019-07-08] MEDS: HYDROCODONE/APAP (5/325) TAB PO (21:09)
[2019-07-09] MEDS: PIPER-TAZO 2.25 GM (PMX) 50 ML IVPB ×5 (00:16→23:35)
[2019-07-09] MEDS: ACCU-CHEK XX (01:45)
[2019-07-09] MEDS: ACETAMINOPHEN 325 MG TAB PO (01:58)
[2019-07-09 05:11] LABS: ADD MAN DIFF? NO
[2019-07-09] MEDS: PANTOPRAZOLE (EC) 40 MG TAB PO (05:33)
[2019-07-09 05:34] LABS: ANION GAP 5 (5-13); BLOOD UREA NITROGEN 52 mg/dl (7-20); CALCIUM 8.4 mg/dl (8.4-10.2); CARBON DIOXIDE 20 mmol/L (21-31); CHLORIDE 110 mmol/L (97-110); CREATININE 1.53 mg/dl (0.61-1.24); GLUCOSE 194 mg/dl (70-220); MAGNESIUM 1.8 mg/dl (1.7-2.5); PHOSPHORUS 2.4 mg/dl (2.5-4.9); POTASSIUM 3.5 mmol/L (3.5-5.1); SODIUM 135 mmol/L (135-144)
[2019-07-09 06:38] LABS: BASOPHILS % 0.2 % (0.0-2.0); EOSINOPHILS # 0.2 10^3/ul (0.0-0.5); EOSINOPHILS % 0.9 % (0.0-7.0); HEMATOCRIT 30.2 % (42.0-52.0); HEMOGLOBIN 9.3 g/dl (14.0-18.0); LYMPHOCYTES # 1.5 10^3/ul (0.8-2.9); LYMPHOCYTES % 6.5 % (15.0-51.0); MEAN CORPUSCULAR HEMOGLOBIN 29.1 pg (29.0-33.0); MEAN CORPUSCULAR HGB CONC 30.8 g/dl (32.0-37.0); MEAN CORPUSCULAR VOLUME 94.4 fl (82.0-101.0); MEAN PLATELET VOLUME 10.4 fl (7.4-10.4); MONOCYTE # 1.5 10^3/ul (0.3-0.9); MONOCYTES % 6.4 % (0.0-11.0); NEUTROPHIL # 19.1 10^3/ul (1.6-7.5); NEUTROPHILS % 84.3 % (39.0-77.0); PLATELET COUNT 201 10^3/UL (140-415); POSITIVE DIFF @See below; RED CELL DISTRIBUTION WIDTH 15.5 % (11.5-14.5)
[2019-07-09 06:38] LABS: WHITE BLOOD COUNT 22.7 10^3/ul (4.8-10.8)
[2019-07-09] MEDS: glipiZIDE 10 MG TAB PO (08:07)
[2019-07-09] MEDS: INSULIN ASPART [NOVOLOG] 3 ML PEN SC ×4 (08:09→21:13)
[2019-07-09] MEDS: LEVETIRACETAM 500 MG TAB PO ×2 (09:03→20:49)
[2019-07-09] MEDS: COLLAGENASE 5 GM (UD JAR) TOP ×2 (09:03→20:50)
[2019-07-09] MEDS: DONEPEZIL 10 MG TAB PO (09:03)
[2019-07-09 09:04] LABS: ANISOCYTOSIS 1+ (0-0); BAND NEUTROPHILS #M 2.2 10^3/ul (0.0-0.6); BAND NEUTROPHILS % (M) 10 % (0-4); BURR CELLS 1+ (0-0); LYMPHOCYTES #M 0.4 10^3/ul (0.8-2.9); LYMPHOCYTES % (M) 2 % (15-51); MICROCYTOSIS 1+ (0-0); MONOCYTE #M 1.8 10^3/ul (0.3-0.9); MONOCYTES % (M) 8 % (0-11); PLATELET ESTIMATE NORMAL; POIKILOCYTOSIS 1+ (0-0); POLYCHROMASIA 1+ (0-0); SEG NEUT #M 18.7 10^3/ul (1.6-7.5); SEGMENTED NEUTROPHILS (M) % 80 % (39-77); SMUDGE%M 6 % (0-0)
[2019-07-09] MEDS: MULTIVITAMINS THERAPEUTIC TAB PO (09:04)
[2019-07-09] MEDS: ASCORBIC ACID 500 MG TAB PO ×2 (09:04→20:49)
[2019-07-09] MEDS: FOLIC ACID 1 MG TAB PO (09:04)
[2019-07-09] MEDS: ZINC SULFATE 220 MG CAP PO (09:04)
[2019-07-09] MEDS: MUPIROCIN 2% 22 GM OINT TOP ×2 (09:05→20:51)
[2019-07-09] MEDS: NEOMYC/POLYMYX/BACIT 30 GM OINT TOP ×2 (09:05→20:50)
[2019-07-09] MEDS: BALSAM PERU/CASTOR OIL 60 GM TUBE TOP (09:06)
[2019-07-09] MEDS: ENOXAPARIN 40 MG/0.4 ML SYG SC (09:08)
[2019-07-09] MEDS: MEMANTINE 10 MG TAB PO ×2 (10:40→20:49)
[2019-07-09] MEDS: INSULIN GLARGINE [LANTus] (100 UNITS/ML) SYG SC (11:03)
[2019-07-09] MEDS: ASPIRIN (EC) 81 MG TAB PO (14:54)
[2019-07-09] MEDS: FLUCONAZOLE 100 MG/50 ML (PMX) 50 ML IVPB (17:31)
[2019-07-09] MEDS: ATORVASTATIN 40 MG TAB PO (20:49)
[2019-07-09] MEDS: HYDROCODONE/APAP (5/325) TAB PO (20:50)
[2019-07-09] MEDS: VANCOMYCIN 1.25 GM/NS 250 ML 250 ML IVPB (20:50)
[2019-07-10] MEDS: ACCU-CHEK XX (02:35)
[2019-07-10] MEDS: PIPER-TAZO 2.25 GM (PMX) 50 ML IVPB ×2 (05:01→12:26)
[2019-07-10] MEDS: PANTOPRAZOLE (EC) 40 MG TAB PO (05:01)
[2019-07-10 05:55] LABS: WHITE BLOOD COUNT 29.5 10^3/ul (4.8-10.8)
[2019-07-10 05:55] LABS: ABNORMAL IP MESSAGE 1; HEMATOCRIT 29.4 % (42.0-52.0); HEMOGLOBIN 9.1 g/dl (14.0-18.0); MEAN CORPUSCULAR HEMOGLOBIN 29.8 pg (29.0-33.0); MEAN CORPUSCULAR VOLUME 96.4 fl (82.0-101.0); MEAN PLATELET VOLUME 9.9 fl (7.4-10.4); PLATELET COUNT 214 10^3/UL (140-415); POSITIVE DIFF @See below; RED BLOOD COUNT 3.05 10^6/ul (4.70-6.10); RED CELL DISTRIBUTION WIDTH 15.9 % (11.5-14.5)
[2019-07-10 06:06] LABS: ADD MAN DIFF? YES
[2019-07-10 06:23] LABS: ANION GAP 5 (5-13); BLOOD UREA NITROGEN 56 mg/dl (7-20); CALCIUM 8.4 mg/dl (8.4-10.2); CARBON DIOXIDE 18 mmol/L (21-31); CHLORIDE 111 mmol/L (97-110); CREATININE 1.85 mg/dl (0.61-1.24); GLUCOSE 145 mg/dl (70-220); POTASSIUM 3.5 mmol/L (3.5-5.1); SODIUM 134 mmol/L (135-144)
[2019-07-10] MEDS: glipiZIDE 10 MG TAB PO (08:10)
[2019-07-10] MEDS: INSULIN GLARGINE [LANTus] (100 UNITS/ML) SYG SC (08:15)
[2019-07-10] MEDS: INSULIN ASPART [NOVOLOG] 3 ML PEN SC ×4 (08:19→20:57)
[2019-07-10 09:42] LABS: ANISOCYTOSIS 1+ (0-0); BAND NEUTROPHILS #M 5.3 10^3/ul (0.0-0.6); BAND NEUTROPHILS % (M) 18 % (0-4); BURR CELLS 2+ (0-0); GIANT THROMBO% (M) 1 % (0-0); LYMPHOCYTES #M 0.5 10^3/ul (0.8-2.9); LYMPHOCYTES % (M) 2 % (15-51); MONOCYTE #M 1.1 10^3/ul (0.3-0.9); MONOCYTES % (M) 4 % (0-11); PLATELET ESTIMATE NORMAL; POIKILOCYTOSIS 3+ (0-0); SEGMENTED NEUTROPHILS (M) % 76 % (39-77); SMUDGE%M 2 % (0-0)
[2019-07-10] MEDS: MEMANTINE 10 MG TAB PO ×2 (09:52→20:42)
[2019-07-10] MEDS: ASPIRIN (EC) 81 MG TAB PO (09:52)
[2019-07-10] MEDS: MULTIVITAMINS THERAPEUTIC TAB PO (09:52)
[2019-07-10] MEDS: LEVETIRACETAM 500 MG TAB PO ×2 (09:52→20:42)
[2019-07-10] MEDS: DONEPEZIL 10 MG TAB PO (09:52)
[2019-07-10] MEDS: COLLAGENASE 5 GM (UD JAR) TOP ×2 (09:53→20:43)
[2019-07-10] MEDS: BALSAM PERU/CASTOR OIL 60 GM TUBE TOP (09:53)
[2019-07-10] MEDS: ASCORBIC ACID 500 MG TAB PO ×2 (09:53→20:42)
[2019-07-10] MEDS: FOLIC ACID 1 MG TAB PO (09:53)
[2019-07-10] MEDS: NEOMYC/POLYMYX/BACIT 30 GM OINT TOP ×2 (09:53→20:43)
[2019-07-10] MEDS: MUPIROCIN 2% 22 GM OINT TOP ×2 (09:54→20:43)
[2019-07-10] MEDS: ZINC SULFATE 220 MG CAP PO (10:04)
[2019-07-10] MEDS: ENOXAPARIN 40 MG/0.4 ML SYG SC (10:13)
[2019-07-10] MEDS: SOD CHLORIDE 0.9% 1,000 ML IV (12:54)
[2019-07-10] MEDS: metroNIDAZOLE 500 MG TAB PO ×2 (15:22→21:33)
[2019-07-10] MEDS: HYDROCODONE/APAP (5/325) TAB PO ×3 (15:49→21:34)
[2019-07-10] MEDS: FLUCONAZOLE 200 MG TAB PO (17:26)
[2019-07-10] MEDS: ATORVASTATIN 40 MG TAB PO (20:42)
[2019-07-11] MEDS: ACCU-CHEK XX (02:49)
[2019-07-11] MEDS: metroNIDAZOLE 500 MG TAB PO ×3 (06:20→22:17)
[2019-07-11] MEDS: PANTOPRAZOLE (EC) 40 MG TAB PO (06:20)
[2019-07-11 06:25] LABS: BLOOD UREA NITROGEN 58 mg/dl (7-20)
[2019-07-11 06:25] LABS: CREATININE 1.94 mg/dl (0.61-1.24)
[2019-07-11 06:26] LABS: ANION GAP 4 (5-13); BLOOD UREA NITROGEN 57 mg/dl (7-20); CALCIUM 7.9 mg/dl (8.4-10.2); CARBON DIOXIDE 16 mmol/L (21-31); CHLORIDE 112 mmol/L (97-110); CREATININE 1.95 mg/dl (0.61-1.24); GLUCOSE 159 mg/dl (70-220); POTASSIUM 3.1 mmol/L (3.5-5.1); SODIUM 132 mmol/L (135-144)
[2019-07-11 06:34] LABS: VANCOMYCIN,RANDOM 16.6 ug/ml
[2019-07-11 07:40] LABS: ABNORMAL IP MESSAGE 1; HEMATOCRIT 27.2 % (42.0-52.0); HEMOGLOBIN 8.5 g/dl (14.0-18.0); MEAN CORPUSCULAR HEMOGLOBIN 29.9 pg (29.0-33.0); MEAN CORPUSCULAR HGB CONC 31.3 g/dl (32.0-37.0); MEAN CORPUSCULAR VOLUME 95.8 fl (82.0-101.0); MEAN PLATELET VOLUME 10.1 fl (7.4-10.4); PLATELET COUNT 218 10^3/UL (140-415); POSITIVE DIFF @See below; RED BLOOD COUNT 2.84 10^6/ul (4.70-6.10)
[2019-07-11 07:44] LABS: ADD MAN DIFF? YES
[2019-07-11] MEDS: INSULIN ASPART [NOVOLOG] 3 ML PEN SC ×4 (08:14→21:41)
[2019-07-11] MEDS: glipiZIDE 10 MG TAB PO (08:30)
[2019-07-11] MEDS: INSULIN GLARGINE [LANTus] (100 UNITS/ML) SYG SC (08:32)
[2019-07-11] MEDS: ZINC SULFATE 220 MG CAP PO (08:34)
[2019-07-11] MEDS: ASPIRIN (EC) 81 MG TAB PO (08:34)
[2019-07-11] MEDS: MULTIVITAMINS THERAPEUTIC TAB PO (08:34)
[2019-07-11] MEDS: MEMANTINE 10 MG TAB PO ×2 (08:34→21:00)
[2019-07-11] MEDS: LEVETIRACETAM 500 MG TAB PO ×2 (08:34→21:01)
[2019-07-11] MEDS: DONEPEZIL 10 MG TAB PO (08:35)
[2019-07-11] MEDS: ASCORBIC ACID 500 MG TAB PO ×2 (08:35→21:01)
[2019-07-11] MEDS: FOLIC ACID 1 MG TAB PO (08:35)
[2019-07-11] MEDS: NEOMYC/POLYMYX/BACIT 30 GM OINT TOP ×2 (08:41→21:36)
[2019-07-11] MEDS: BALSAM PERU/CASTOR OIL 60 GM TUBE TOP (08:41)
[2019-07-11] MEDS: MUPIROCIN 2% 22 GM OINT TOP ×2 (08:41→21:36)
[2019-07-11] MEDS: COLLAGENASE 5 GM (UD JAR) TOP ×2 (08:41→21:35)
[2019-07-11] MEDS: ENOXAPARIN 30 MG/0.3 ML SYG SC (08:52)
[2019-07-11 11:00] LABS: BAND NEUTROPHILS #M 4.9 10^3/ul (0.0-0.6); BAND NEUTROPHILS % (M) 19 % (0-4); BURR CELLS 2+ (0-0); EOSINOPHILS % (M) 1 % (0-7); GIANT THROMBO% (M) 2 % (0-0); LYMPHOCYTES #M 0.7 10^3/ul (0.8-2.9); LYMPHOCYTES % (M) 3 % (15-51); MONOCYTE #M 1.5 10^3/ul (0.3-0.9); MONOCYTES % (M) 6 % (0-11); PLATELET ESTIMATE NORMAL; POIKILOCYTOSIS 2+ (0-0); POLYCHROMASIA 3+ (0-0); SEG NEUT #M 19.7 10^3/ul (1.6-7.5); SEGMENTED NEUTROPHILS (M) % 71 % (39-77); SMUDGE%M 2 % (0-0); TOXIC GRANULATION 1+ (0-0)
[2019-07-11] MEDS: HYDROCODONE/APAP (5/325) TAB PO (14:05)
[2019-07-11] MEDS: FLUCONAZOLE 200 MG TAB PO (17:23)
[2019-07-11] MEDS: VANCOMYCIN 1 GM 250 ML IVPB (20:59)
[2019-07-11] MEDS: ATORVASTATIN 40 MG TAB PO (21:01)
[2019-07-12] MEDS: ACCU-CHEK XX (02:00)
[2019-07-12 06:14] LABS: ADD MAN DIFF? NO
[2019-07-12 06:24] LABS: BASOPHILS % 0.2 % (0.0-2.0); EOSINOPHILS # 0.2 10^3/ul (0.0-0.5); EOSINOPHILS % 1.6 % (0.0-7.0); HEMATOCRIT 27.6 % (42.0-52.0); HEMOGLOBIN 8.4 g/dl (14.0-18.0); LYMPHOCYTES # 1.1 10^3/ul (0.8-2.9); LYMPHOCYTES % 7.5 % (15.0-51.0); MEAN CORPUSCULAR HEMOGLOBIN 29.4 pg (29.0-33.0); MEAN CORPUSCULAR HGB CONC 30.4 g/dl (32.0-37.0); MEAN CORPUSCULAR VOLUME 96.5 fl (82.0-101.0); MEAN PLATELET VOLUME 10.2 fl (7.4-10.4); MONOCYTE # 0.7 10^3/ul (0.3-0.9); MONOCYTES % 4.8 % (0.0-11.0); NEUTROPHIL # 12.2 10^3/ul (1.6-7.5); NEUTROPHILS % 84.2 % (39.0-77.0); PLATELET COUNT 232 10^3/UL (140-415); RED BLOOD COUNT 2.86 10^6/ul (4.70-6.10); RED CELL DISTRIBUTION WIDTH 16.3 % (11.5-14.5)
[2019-07-12 06:24] LABS: WHITE BLOOD COUNT 14.5 10^3/ul (4.8-10.8)
[2019-07-12] MEDS: metroNIDAZOLE 500 MG TAB PO ×3 (06:32→21:09)
[2019-07-12] MEDS: PANTOPRAZOLE (EC) 40 MG TAB PO (06:33)
[2019-07-12 06:48] LABS: CREATININE 1.99 mg/dl (0.61-1.24)
[2019-07-12 06:48] LABS: BLOOD UREA NITROGEN 55 mg/dl (7-20)
[2019-07-12] MEDS: ZINC SULFATE 220 MG CAP PO (08:21)
[2019-07-12] MEDS: FOLIC ACID 1 MG TAB PO (08:21)
[2019-07-12] MEDS: MULTIVITAMINS THERAPEUTIC TAB PO (08:22)
[2019-07-12] MEDS: LEVETIRACETAM 500 MG TAB PO ×2 (08:22→21:02)
[2019-07-12] MEDS: DONEPEZIL 10 MG TAB PO (08:23)
[2019-07-12] MEDS: ASCORBIC ACID 500 MG TAB PO ×2 (08:23→21:01)
[2019-07-12] MEDS: MEMANTINE 10 MG TAB PO ×2 (08:23→21:02)
[2019-07-12] MEDS: COLLAGENASE 5 GM (UD JAR) TOP ×2 (08:24→21:09)
[2019-07-12] MEDS: ASPIRIN (EC) 81 MG TAB PO (08:24)
[2019-07-12] MEDS: glipiZIDE 10 MG TAB PO (08:24)
[2019-07-12] MEDS: BALSAM PERU/CASTOR OIL 60 GM TUBE TOP (08:26)
[2019-07-12] MEDS: NEOMYC/POLYMYX/BACIT 30 GM OINT TOP ×2 (08:26→21:05)
[2019-07-12] MEDS: INSULIN ASPART [NOVOLOG] 3 ML PEN SC ×4 (08:44→21:04)
[2019-07-12] MEDS: INSULIN GLARGINE [LANTus] (100 UNITS/ML) SYG SC (08:44)
[2019-07-12] MEDS: ENOXAPARIN 30 MG/0.3 ML SYG SC (08:45)
[2019-07-12] MEDS: MUPIROCIN 2% 22 GM OINT TOP ×2 (08:51→21:05)
[2019-07-12] MEDS: CASPOFUNGIN 70 MG in SOD CHLORIDE 0.9% 250 ML IVPB (14:49)
[2019-07-12] MEDS: HYDROCODONE/APAP (5/325) TAB PO (14:50)
[2019-07-12] MEDS: ATORVASTATIN 40 MG TAB PO (21:01)
[2019-07-12] MEDS: DOXYCYCLINE 100 MG TAB PO (21:02)
[2019-07-13] MEDS: ACCU-CHEK XX (02:00)
[2019-07-13] MEDS: metroNIDAZOLE 500 MG TAB PO ×3 (05:21→20:19)
[2019-07-13] MEDS: PANTOPRAZOLE (EC) 40 MG TAB PO (05:22)
[2019-07-13] MEDS: INSULIN GLARGINE [LANTus] (100 UNITS/ML) SYG SC (08:00)
[2019-07-13] MEDS: MEMANTINE 10 MG TAB PO ×2 (08:38→20:19)
[2019-07-13] MEDS: ASCORBIC ACID 500 MG TAB PO ×2 (08:39→20:19)
[2019-07-13] MEDS: ZINC SULFATE 220 MG CAP PO (08:39)
[2019-07-13] MEDS: ASPIRIN (EC) 81 MG TAB PO (08:39)
[2019-07-13] MEDS: DOXYCYCLINE 100 MG TAB PO ×2 (08:39→20:19)
[2019-07-13] MEDS: DONEPEZIL 10 MG TAB PO (08:39)
[2019-07-13] MEDS: glipiZIDE 10 MG TAB PO (08:39)
[2019-07-13] MEDS: LEVETIRACETAM 500 MG TAB PO ×2 (08:39→20:19)
[2019-07-13] MEDS: FOLIC ACID 1 MG TAB PO (08:39)
[2019-07-13] MEDS: BALSAM PERU/CASTOR OIL 60 GM TUBE TOP (08:40)
[2019-07-13] MEDS: COLLAGENASE 5 GM (UD JAR) TOP ×2 (08:40→20:19)
[2019-07-13] MEDS: NEOMYC/POLYMYX/BACIT 30 GM OINT TOP ×2 (08:40→20:20)
[2019-07-13] MEDS: ENOXAPARIN 30 MG/0.3 ML SYG SC (08:42)
[2019-07-13] MEDS: INSULIN ASPART [NOVOLOG] 3 ML PEN SC ×4 (08:42→20:33)
[2019-07-13] MEDS: MUPIROCIN 2% 22 GM OINT TOP ×2 (08:48→20:20)
[2019-07-13] MEDS: MULTIVITAMINS THERAPEUTIC TAB PO (08:49)
[2019-07-13 10:43] LABS: ADD MAN DIFF? NO
[2019-07-13 10:46] LABS: BASOPHILS % 0.3 % (0.0-2.0); EOSINOPHILS # 0.2 10^3/ul (0.0-0.5); EOSINOPHILS % 2.4 % (0.0-7.0); HEMATOCRIT 30.1 % (42.0-52.0); LYMPHOCYTES # 1.2 10^3/ul (0.8-2.9); LYMPHOCYTES % 11.9 % (15.0-51.0); MEAN CORPUSCULAR HEMOGLOBIN 28.8 pg (29.0-33.0); MEAN CORPUSCULAR HGB CONC 29.9 g/dl (32.0-37.0); MEAN CORPUSCULAR VOLUME 96.5 fl (82.0-101.0); MEAN PLATELET VOLUME 9.7 fl (7.4-10.4); MONOCYTE # 0.9 10^3/ul (0.3-0.9); MONOCYTES % 8.7 % (0.0-11.0); NEUTROPHIL # 7.3 10^3/ul (1.6-7.5); NEUTROPHILS % 75.2 % (39.0-77.0); PLATELET COUNT 289 10^3/UL (140-415); RED BLOOD COUNT 3.12 10^6/ul (4.70-6.10); RED CELL DISTRIBUTION WIDTH 16.8 % (11.5-14.5)
[2019-07-13 10:46] LABS: WHITE BLOOD COUNT 9.8 10^3/ul (4.8-10.8)
[2019-07-13 11:12] LABS: ANION GAP 8 (5-13); BLOOD UREA NITROGEN 54 mg/dl (7-20); CALCIUM 8.3 mg/dl (8.4-10.2); CARBON DIOXIDE 16 mmol/L (21-31); CHLORIDE 116 mmol/L (97-110); CREATININE 1.72 mg/dl (0.61-1.24); GLUCOSE 191 mg/dl (70-220); POTASSIUM 3.4 mmol/L (3.5-5.1); SODIUM 140 mmol/L (135-144)
[2019-07-13] MEDS: CASPOFUNGIN 50 MG in SOD CHLORIDE 0.9% 250 ML IVPB (13:39)
[2019-07-13] MEDS: ATORVASTATIN 40 MG TAB PO (20:19)
[2019-07-14] MEDS: ACCU-CHEK XX (02:00)
[2019-07-14] MEDS: HYDROCODONE/APAP (5/325) TAB PO ×2 (02:19→20:22)
[2019-07-14] MEDS: GUAIFENESIN/DM 5ML CUP PO ×2 (02:43→20:29)
[2019-07-14] MEDS: PANTOPRAZOLE (EC) 40 MG TAB PO (04:25)
[2019-07-14] MEDS: metroNIDAZOLE 500 MG TAB PO ×3 (05:13→20:29)
[2019-07-14] MEDS: glipiZIDE 10 MG TAB PO (07:46)
[2019-07-14] MEDS: INSULIN ASPART [NOVOLOG] 3 ML PEN SC ×4 (08:09→20:21)
[2019-07-14] MEDS: INSULIN GLARGINE [LANTus] (100 UNITS/ML) SYG SC (08:10)
[2019-07-14] MEDS: SOD CHLORIDE 0.9% 1,000 ML IV (08:36)
[2019-07-14] MEDS: DOXYCYCLINE 100 MG TAB PO ×2 (08:38→20:22)
[2019-07-14] MEDS: ASPIRIN (EC) 81 MG TAB PO (08:38)
[2019-07-14] MEDS: ASCORBIC ACID 500 MG TAB PO ×2 (08:39→20:22)
[2019-07-14] MEDS: ZINC SULFATE 220 MG CAP PO (08:39)
[2019-07-14] MEDS: FOLIC ACID 1 MG TAB PO (08:39)
[2019-07-14] MEDS: MEMANTINE 10 MG TAB PO ×2 (08:39→20:22)
[2019-07-14] MEDS: MULTIVITAMINS THERAPEUTIC TAB PO (08:39)
[2019-07-14] MEDS: DONEPEZIL 10 MG TAB PO (08:39)
[2019-07-14] MEDS: LEVETIRACETAM 500 MG TAB PO ×2 (08:39→20:22)
[2019-07-14] MEDS: COLLAGENASE 5 GM (UD JAR) TOP ×2 (08:41→20:21)
[2019-07-14] MEDS: MUPIROCIN 2% 22 GM OINT TOP ×2 (08:41→20:21)
[2019-07-14] MEDS: NEOMYC/POLYMYX/BACIT 30 GM OINT TOP ×2 (08:41→20:21)
[2019-07-14] MEDS: BALSAM PERU/CASTOR OIL 60 GM TUBE TOP (08:41)
[2019-07-14] MEDS: ENOXAPARIN 30 MG/0.3 ML SYG SC (08:52)
[2019-07-14] MEDS: CASPOFUNGIN 50 MG in SOD CHLORIDE 0.9% 250 ML IVPB (13:27)
[2019-07-14 13:49] LABS: ADD UMIC YES; UR ASCORBIC ACID 40 mg/dL (NEGATIVE); UR BACTERIA FEW /HPF (NONE SEEN); UR BILIRUBIN (Dip) NEGATIVE (NEGATIVE); UR BLOOD (Dip) NEGATIVE (NEGATIVE); UR CLARITY CLOUDY (CLEAR); UR COLOR YELLOW (YELLOW); UR GLUCOSE (Dip) NEGATIVE (NEGATIVE); UR KETONES (Dip) NEGATIVE (NEGATIVE); UR LEUKOCYTE ESTERASE (Dip) TRACE Leu/ul (NEGATIVE); UR NITRITE (Dip) NEGATIVE (NEGATIVE); UR RBC 1 /HPF (0-5); UR SPECIFIC GRAVITY (Dip) 1.014 (1.003-1.030); UR SQUAMOUS EPITHELIAL CELL FEW /HPF (FEW); UR TOTAL PROTEIN (Dip) 2+ mg/dl (NEGATIVE); UR UROBILINOGEN (Dip) NEGATIVE (NEGATIVE); UR WBC 12 /HPF (0-5)
[2019-07-14 13:59] LABS: SODIUM,URINE RANDOM 43 mmol/L (30-90)
[2019-07-14] MEDS: ATORVASTATIN 40 MG TAB PO (20:22)
[2019-07-15] MEDS: ACCU-CHEK XX (01:49)
[2019-07-15] MEDS: SOD CHLORIDE 0.9% 1,000 ML IV (04:00)
[2019-07-15] MEDS: PANTOPRAZOLE (EC) 40 MG TAB PO (04:54)
[2019-07-15] MEDS: metroNIDAZOLE 500 MG TAB PO ×3 (04:54→22:24)
[2019-07-15] MEDS: GUAIFENESIN/DM 5ML CUP PO ×2 (04:54→20:52)
[2019-07-15 06:12] LABS: ADD MAN DIFF? NO
[2019-07-15 06:19] LABS: WHITE BLOOD COUNT 8.4 10^3/ul (4.8-10.8)
[2019-07-15 06:19] LABS: BASOPHILS % 0.2 % (0.0-2.0); EOSINOPHILS # 0.3 10^3/ul (0.0-0.5); EOSINOPHILS % 3.4 % (0.0-7.0); HEMOGLOBIN 9.2 g/dl (14.0-18.0); LYMPHOCYTES # 1.3 10^3/ul (0.8-2.9); LYMPHOCYTES % 15.7 % (15.0-51.0); MEAN CORPUSCULAR HGB CONC 29.7 g/dl (32.0-37.0); MEAN CORPUSCULAR VOLUME 97.8 fl (82.0-101.0); MEAN PLATELET VOLUME 9.6 fl (7.4-10.4); MONOCYTE # 0.8 10^3/ul (0.3-0.9); MONOCYTES % 8.9 % (0.0-11.0); NEUTROPHIL # 5.9 10^3/ul (1.6-7.5); NEUTROPHILS % 70.7 % (39.0-77.0); PLATELET COUNT 291 10^3/UL (140-415); RED BLOOD COUNT 3.17 10^6/ul (4.70-6.10); RED CELL DISTRIBUTION WIDTH 16.9 % (11.5-14.5)
[2019-07-15 06:42] LABS: ANION GAP 7 (5-13); BLOOD UREA NITROGEN 58 mg/dl (7-20); CALCIUM 8.7 mg/dl (8.4-10.2); CARBON DIOXIDE 15 mmol/L (21-31); CHLORIDE 122 mmol/L (97-110); CREATININE 1.67 mg/dl (0.61-1.24); GLUCOSE 96 mg/dl (70-220); POTASSIUM 3.4 mmol/L (3.5-5.1); SODIUM 144 mmol/L (135-144)
[2019-07-15] MEDS: INSULIN ASPART [NOVOLOG] 3 ML PEN SC ×4 (08:00→21:10)
[2019-07-15] MEDS: DONEPEZIL 10 MG TAB PO (09:00)
[2019-07-15] MEDS: ASCORBIC ACID 500 MG TAB PO ×2 (09:22→20:52)
[2019-07-15] MEDS: MEMANTINE 10 MG TAB PO ×2 (09:22→20:52)
[2019-07-15] MEDS: MULTIVITAMINS THERAPEUTIC TAB PO (09:22)
[2019-07-15] MEDS: LEVETIRACETAM 500 MG TAB PO ×2 (09:22→20:52)
[2019-07-15] MEDS: FOLIC ACID 1 MG TAB PO (09:22)
[2019-07-15] MEDS: ZINC SULFATE 220 MG CAP PO (09:22)
[2019-07-15] MEDS: ASPIRIN (EC) 81 MG TAB PO (09:22)
[2019-07-15] MEDS: DOXYCYCLINE 100 MG TAB PO ×2 (09:23→20:51)
[2019-07-15] MEDS: POTASSIUM CHLORIDE (SR) 20 MEQ TAB PO (09:23)
[2019-07-15] MEDS: glipiZIDE 10 MG TAB PO (09:32)
[2019-07-15] MEDS: INSULIN GLARGINE [LANTus] (100 UNITS/ML) SYG SC (10:20)
[2019-07-15] MEDS: ENOXAPARIN 30 MG/0.3 ML SYG SC (10:20)
[2019-07-15] MEDS: BALSAM PERU/CASTOR OIL 60 GM TUBE TOP (12:00)
[2019-07-15] MEDS: COLLAGENASE 5 GM (UD JAR) TOP ×2 (12:00→20:54)
[2019-07-15] MEDS: NEOMYC/POLYMYX/BACIT 30 GM OINT TOP ×2 (12:01→20:54)
[2019-07-15] MEDS: MUPIROCIN 2% 22 GM OINT TOP ×2 (12:01→20:54)
[2019-07-15] MEDS: CASPOFUNGIN 50 MG in SOD CHLORIDE 0.9% 250 ML IVPB (14:33)
[2019-07-15] MEDS: morphine 2 MG INJ IV (17:30)
[2019-07-15] MEDS: ATORVASTATIN 40 MG TAB PO (20:52)
[2019-07-15] MEDS: HYDROCODONE/APAP (5/325) TAB PO (20:52)
[2019-07-16] MEDS: ACCU-CHEK XX (02:27)
[2019-07-16] MEDS: PANTOPRAZOLE (EC) 40 MG TAB PO (04:28)
[2019-07-16] MEDS: HYDROCODONE/APAP (5/325) TAB PO ×2 (04:28→20:44)
[2019-07-16] MEDS: GUAIFENESIN/DM 5ML CUP PO ×3 (04:28→20:44)
[2019-07-16] MEDS: metroNIDAZOLE 500 MG TAB PO ×3 (04:28→20:44)
[2019-07-16] MEDS: SOD CHLORIDE 0.9% 1,000 ML IV ×2 (04:34)
[2019-07-16 05:03] LABS: ADD MAN DIFF? NO
[2019-07-16 05:09] LABS: BASOPHILS % 0.4 % (0.0-2.0); EOSINOPHILS # 0.2 10^3/ul (0.0-0.5); HEMATOCRIT 31.6 % (42.0-52.0); HEMOGLOBIN 9.6 g/dl (14.0-18.0); LYMPHOCYTES # 1.2 10^3/ul (0.8-2.9); LYMPHOCYTES % 15.7 % (15.0-51.0); MEAN CORPUSCULAR HEMOGLOBIN 29.4 pg (29.0-33.0); MEAN CORPUSCULAR HGB CONC 30.4 g/dl (32.0-37.0); MEAN CORPUSCULAR VOLUME 96.9 fl (82.0-101.0); MEAN PLATELET VOLUME 9.3 fl (7.4-10.4); MONOCYTE # 0.7 10^3/ul (0.3-0.9); MONOCYTES % 8.8 % (0.0-11.0); NEUTROPHIL # 5.3 10^3/ul (1.6-7.5); NEUTROPHILS % 70.8 % (39.0-77.0); PLATELET COUNT 304 10^3/UL (140-415); RED BLOOD COUNT 3.26 10^6/ul (4.70-6.10); RED CELL DISTRIBUTION WIDTH 17.3 % (11.5-14.5)
[2019-07-16 05:09] LABS: WHITE BLOOD COUNT 7.4 10^3/ul (4.8-10.8)
[2019-07-16 05:42] LABS: ANION GAP 4 (5-13); BLOOD UREA NITROGEN 50 mg/dl (7-20); CALCIUM 8.6 mg/dl (8.4-10.2); CARBON DIOXIDE 17 mmol/L (21-31); CHLORIDE 125 mmol/L (97-110); CREATININE 1.67 mg/dl (0.61-1.24); GLUCOSE 123 mg/dl (70-220); POTASSIUM 3.4 mmol/L (3.5-5.1); SODIUM 146 mmol/L (135-144)
[2019-07-16] MEDS: DOXYCYCLINE 100 MG TAB PO ×2 (07:44→20:46)
[2019-07-16] MEDS: MULTIVITAMINS THERAPEUTIC TAB PO (07:45)
[2019-07-16] MEDS: ZINC SULFATE 220 MG CAP PO (07:45)
[2019-07-16] MEDS: glipiZIDE 10 MG TAB PO (07:46)
[2019-07-16] MEDS: LEVETIRACETAM 500 MG TAB PO ×2 (07:46→20:44)
[2019-07-16] MEDS: ASCORBIC ACID 500 MG TAB PO ×2 (07:46→20:44)
[2019-07-16] MEDS: ASPIRIN (EC) 81 MG TAB PO (07:46)
[2019-07-16] MEDS: MEMANTINE 10 MG TAB PO ×2 (07:46→20:43)
[2019-07-16] MEDS: FOLIC ACID 1 MG TAB PO (07:46)
[2019-07-16] MEDS: DONEPEZIL 10 MG TAB PO (07:47)
[2019-07-16 08:03] LABS: MAGNESIUM 1.8 mg/dl (1.7-2.5)
[2019-07-16] MEDS: INSULIN GLARGINE [LANTus] (100 UNITS/ML) SYG SC (08:45)
[2019-07-16] MEDS: INSULIN ASPART [NOVOLOG] 3 ML PEN SC ×4 (08:48→21:30)
[2019-07-16] MEDS: ENOXAPARIN 30 MG/0.3 ML SYG SC (08:48)
[2019-07-16] MEDS: POTASSIUM CHLORIDE 100 ML IVPB ×2 (09:42→16:49)
[2019-07-16] MEDS: DEXTROSE 5% 1,000 ML IV (09:50)
[2019-07-16] MEDS: CASPOFUNGIN 50 MG in SOD CHLORIDE 0.9% 250 ML IVPB (16:46)
[2019-07-16 16:51] LABS: CREATININE, RANDOM URINE 70 mg/dL (20-320); MICROALBUMIN 2.7 mg/dL; MICROALBUMIN/CREATININE RATIO 39 (<30)
[2019-07-16] MEDS: MUPIROCIN 2% 22 GM OINT TOP ×2 (17:48→20:44)
[2019-07-16] MEDS: BALSAM PERU/CASTOR OIL 60 GM TUBE TOP (17:48)
[2019-07-16] MEDS: NEOMYC/POLYMYX/BACIT 30 GM OINT TOP ×2 (17:48→20:44)
[2019-07-16] MEDS: COLLAGENASE 5 GM (UD JAR) TOP ×2 (17:48→20:44)
[2019-07-16] MEDS: ATORVASTATIN 40 MG TAB PO (20:44)
[2019-07-17] MEDS: ACCU-CHEK XX (02:21)
[2019-07-17] MEDS: DEXTROSE 5% 1,000 ML IV (04:00)
[2019-07-17] MEDS: metroNIDAZOLE 500 MG TAB PO ×3 (04:45→22:13)
[2019-07-17] MEDS: PANTOPRAZOLE (EC) 40 MG TAB PO (04:45)
[2019-07-17] MEDS: GUAIFENESIN/DM 5ML CUP PO (04:45)
[2019-07-17 05:32] LABS: ADD MAN DIFF? NO
[2019-07-17 05:39] LABS: BASOPHILS % 0.6 % (0.0-2.0); EOSINOPHILS # 0.2 10^3/ul (0.0-0.5); HEMATOCRIT 30.5 % (42.0-52.0); HEMOGLOBIN 9.1 g/dl (14.0-18.0); LYMPHOCYTES # 1.7 10^3/ul (0.8-2.9); LYMPHOCYTES % 23.8 % (15.0-51.0); MEAN CORPUSCULAR HEMOGLOBIN 29.7 pg (29.0-33.0); MEAN CORPUSCULAR HGB CONC 29.8 g/dl (32.0-37.0); MEAN CORPUSCULAR VOLUME 99.7 fl (82.0-101.0); MEAN PLATELET VOLUME 9.6 fl (7.4-10.4); MONOCYTE # 0.6 10^3/ul (0.3-0.9); MONOCYTES % 8.6 % (0.0-11.0); NEUTROPHIL # 4.4 10^3/ul (1.6-7.5); NEUTROPHILS % 62.9 % (39.0-77.0); PLATELET COUNT 298 10^3/UL (140-415); RED BLOOD COUNT 3.06 10^6/ul (4.70-6.10); RED CELL DISTRIBUTION WIDTH 17.4 % (11.5-14.5)
[2019-07-17 06:00] LABS: MAGNESIUM 1.7 mg/dl (1.7-2.5)
[2019-07-17 06:05] LABS: ANION GAP 5 (5-13); BLOOD UREA NITROGEN 45 mg/dl (7-20); CALCIUM 8.6 mg/dl (8.4-10.2); CARBON DIOXIDE 15 mmol/L (21-31); CHLORIDE 123 mmol/L (97-110); CREATININE 1.49 mg/dl (0.61-1.24); GLUCOSE 174 mg/dl (70-220); POTASSIUM 3.8 mmol/L (3.5-5.1); SODIUM 143 mmol/L (135-144)
[2019-07-17] MEDS: glipiZIDE 10 MG TAB PO (07:54)
[2019-07-17] MEDS: INSULIN GLARGINE [LANTus] (100 UNITS/ML) SYG SC (08:06)
[2019-07-17] MEDS: INSULIN ASPART [NOVOLOG] 3 ML PEN SC ×4 (08:06→21:13)
[2019-07-17] MEDS: MEMANTINE 10 MG TAB PO ×2 (08:35→21:15)
[2019-07-17] MEDS: COLLAGENASE 5 GM (UD JAR) TOP ×2 (08:35→21:16)
[2019-07-17] MEDS: BALSAM PERU/CASTOR OIL 60 GM TUBE TOP (08:36)
[2019-07-17] MEDS: MUPIROCIN 2% 22 GM OINT TOP ×2 (08:36→21:15)
[2019-07-17] MEDS: NEOMYC/POLYMYX/BACIT 30 GM OINT TOP ×2 (08:36→21:15)
[2019-07-17] MEDS: DONEPEZIL 10 MG TAB PO (08:37)
[2019-07-17] MEDS: MULTIVITAMINS THERAPEUTIC TAB PO (08:37)
[2019-07-17] MEDS: ZINC SULFATE 220 MG CAP PO (08:37)
[2019-07-17] MEDS: FOLIC ACID 1 MG TAB PO (08:37)
[2019-07-17] MEDS: LEVETIRACETAM 500 MG TAB PO ×2 (08:38→21:15)
[2019-07-17] MEDS: DOXYCYCLINE 100 MG TAB PO ×2 (08:38→21:07)
[2019-07-17] MEDS: ASCORBIC ACID 500 MG TAB PO ×2 (08:38→21:07)
[2019-07-17] MEDS: ASPIRIN (EC) 81 MG TAB PO (08:38)
[2019-07-17] MEDS: ENOXAPARIN 30 MG/0.3 ML SYG SC (08:51)
[2019-07-17] MEDS: CASPOFUNGIN 50 MG in SOD CHLORIDE 0.9% 250 ML IVPB (12:57)
[2019-07-17] MEDS: ATORVASTATIN 40 MG TAB PO (21:08)
[2019-07-17] MEDS: APIXABAN 5 MG TABLET PO (21:08)
[2019-07-18] MEDS: ACCU-CHEK XX (02:55)
[2019-07-18 05:47] LABS: ADD MAN DIFF? NO
[2019-07-18 05:52] LABS: BASOPHILS % 0.5 % (0.0-2.0); EOSINOPHILS # 0.2 10^3/ul (0.0-0.5); EOSINOPHILS % 2.4 % (0.0-7.0); HEMATOCRIT 29.7 % (42.0-52.0); LYMPHOCYTES # 1.8 10^3/ul (0.8-2.9); LYMPHOCYTES % 27.7 % (15.0-51.0); MEAN CORPUSCULAR HEMOGLOBIN 29.8 pg (29.0-33.0); MEAN CORPUSCULAR HGB CONC 30.3 g/dl (32.0-37.0); MEAN CORPUSCULAR VOLUME 98.3 fl (82.0-101.0); MEAN PLATELET VOLUME 9.5 fl (7.4-10.4); MONOCYTE # 0.6 10^3/ul (0.3-0.9); MONOCYTES % 9.1 % (0.0-11.0); NEUTROPHIL # 3.8 10^3/ul (1.6-7.5); PLATELET COUNT 312 10^3/UL (140-415); RED BLOOD COUNT 3.02 10^6/ul (4.70-6.10); RED CELL DISTRIBUTION WIDTH 17.5 % (11.5-14.5)
[2019-07-18 05:52] LABS: WHITE BLOOD COUNT 6.4 10^3/ul (4.8-10.8)
[2019-07-18] MEDS: PANTOPRAZOLE (EC) 40 MG TAB PO (06:18)
[2019-07-18] MEDS: metroNIDAZOLE 500 MG TAB PO ×2 (06:18→14:00)
[2019-07-18 06:21] LABS: MAGNESIUM 1.6 mg/dl (1.7-2.5)
[2019-07-18 06:36] LABS: ANION GAP 5 (5-13); BLOOD UREA NITROGEN 41 mg/dl (7-20); CALCIUM 8.6 mg/dl (8.4-10.2); CARBON DIOXIDE 18 mmol/L (21-31); CHLORIDE 122 mmol/L (97-110); CREATININE 1.44 mg/dl (0.61-1.24); GLUCOSE 97 mg/dl (70-220); POTASSIUM 3.7 mmol/L (3.5-5.1); SODIUM 145 mmol/L (135-144)
[2019-07-18] MEDS: HYDROCODONE/APAP (5/325) TAB PO (06:41)
[2019-07-18] MEDS: INSULIN ASPART [NOVOLOG] 3 ML PEN SC ×5 (08:00→18:50)
[2019-07-18] MEDS: DONEPEZIL 10 MG TAB PO (08:56)
[2019-07-18] MEDS: MEMANTINE 10 MG TAB PO (08:56)
[2019-07-18] MEDS: LEVETIRACETAM 500 MG TAB PO (08:57)
[2019-07-18] MEDS: FOLIC ACID 1 MG TAB PO (08:57)
[2019-07-18] MEDS: ASPIRIN (EC) 81 MG TAB PO (08:57)
[2019-07-18] MEDS: APIXABAN 5 MG TABLET PO (08:57)
[2019-07-18] MEDS: LINAGLIPTIN 5 MG TABLET PO (08:58)
[2019-07-18] MEDS: ASCORBIC ACID 500 MG TAB PO (08:58)
[2019-07-18] MEDS: ZINC SULFATE 220 MG CAP PO (08:58)
[2019-07-18] MEDS: MULTIVITAMINS THERAPEUTIC TAB PO (08:58)
[2019-07-18] MEDS: DOXYCYCLINE 100 MG TAB PO (08:58)
[2019-07-18] MEDS: MUPIROCIN 2% 22 GM OINT TOP (08:59)
[2019-07-18] MEDS: COLLAGENASE 5 GM (UD JAR) TOP (08:59)
[2019-07-18] MEDS: NEOMYC/POLYMYX/BACIT 30 GM OINT TOP (08:59)
[2019-07-18] MEDS: BALSAM PERU/CASTOR OIL 60 GM TUBE TOP (08:59)
[2019-07-18] MEDS: INSULIN GLARGINE [LANTus] (100 UNITS/ML) SYG SC (09:11)
[2019-07-18] MEDS: CASPOFUNGIN 50 MG in SOD CHLORIDE 0.9% 250 ML IVPB (13:00)
[2019-07-18] MEDS: MAGNESIUM SULFATE 3 GM in DEXTROSE 5% 100 ML IVPB (16:03)
== END 2019-07-18 21:20 | DRG 562 ==
LOC: E/R 13:32 → 6WM 19:21
PROC: 0QSHXZZ Reposition Left Tibia, External Approach (ICD-10-PCS; principal; 2019-07-02 16:46)
DX: S82.142A Displaced bicondylar fracture of left tibia, initial encounter for closed fracture (principal); A41.9 Sepsis, unspecified organism; J69.0 Pneumonitis due to inhalation of food and vomit; N39.0 Urinary tract infection, site not specified; I69.354 Hemiplegia and hemiparesis following cerebral infarction affecting left non-dominant side; R47.01 Aphasia; I82.4Z2 Acute embolism and thrombosis of unspecified deep veins of left distal lower extremity; N17.9 Acute kidney failure, unspecified; S00.83XA Contusion of other part of head, initial encounter; S82.832A Other fracture of upper and lower end of left fibula, initial encounter for closed fracture; E78.5 Hyperlipidemia, unspecified; E11.9 Type 2 diabetes mellitus without complications; I25.10 Atherosclerotic heart disease of native coronary artery without angina pectoris; J44.9 Chronic obstructive pulmonary disease, unspecified; R36.9 Urethral discharge, unspecified; D50.9 Iron deficiency anemia, unspecified; W05.0XXA Fall from non-moving wheelchair, initial encounter; I12.9 Hypertensive chronic kidney disease with stage 1 through stage 4 chronic kidney disease, or unspecified chronic kidney disease; E11.22 Type 2 diabetes mellitus with diabetic chronic kidney disease; N18.9 Chronic kidney disease, unspecified; L89.159 Pressure ulcer of sacral region, unspecified stage; E83.9 Disorder of mineral metabolism, unspecified; E87.6 Hypokalemia; Y92.9 Unspecified place or not applicable; Z95.5 Presence of coronary angioplasty implant and graft; Z85.51 Personal history of malignant neoplasm of bladder; Z79.4 Long term (current) use of insulin; I25.2 Old myocardial infarction
CPT/HCPCS: 36430; 70450; 71045; 73550; 73560; 73590; 73700; 74230; 76775; 80048; 80053; 80061; 80069; 80202; 81001; 81003; 82043; 82565; 82962; 83036; 83540; 83690; 83735; 84100; 84155; 84300; 84484; 84520; 85014; 85018; 85025; 85610; 85730; 86850; 86900; 86901; 86920; 87040-91; 87075; 87081; 87086; 92526; 92610; 92611; 93005; 93306; 93970; 96374; 96375; 97110; 97162; 97530; 99285-25